=== PATIENT | male | born 1935 | race Caucasian/White ===

== ENCOUNTER 2019-12-22 12:15 | Outpatient (CLI) | payer MEDICARE, SELFPAY ==
--- NOTE | ~2019-12-22 | XR_ITS ---
XR lumbar spine 2-3V DATE: 12/22/2019 13:06 INDICATION: Fall one week ago. Low back pain, low posterior rib pain. TECHNIQUE: AP, lateral, coned lateral lumbosacral views COMPARISON: None FINDINGS: Minimal levoscoliosis of the lumbar spine. There is degenerative change at the apophyseal joints in the lower lumbar and lumbosacral area with a ssociated grade 1 anterolisthesis at L4-5. There is moderately severe degenerative disc disease at T12-L1. There is moderately prominent degener ative disc disease at L2-3 and L4-5 and mild degenerative disc disease at the remaining lumbar levels sacral interspaces. No lumbar spine fracture is evident. There is mild anterior wedging and loss of height at T10, which may indicate a compression fracture o f uncertain age. The included lower thoracic and lumbar pedicles are intact. The sacroiliac joints are intact. Bilateral pelvic surgical clips, likely due to prostatectomy. 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
--- NOTE | ~2019-12-22 | XR_ITS ---
XR ribs RT 2V DATE: 12/22/2019 13:06 INDICATION: Right chest contusion, pain TECHNIQUE: 3 views of the right ribs COMPARISON: 320/15/right RIBS FINDINGS: No displaced rib fractures are evident. No underlying pneumothorax or pleural effusion is evident. The right lung appears essentially clear. IMPRESSION: No recent right rib fracture is noted Reviewed, dictated and finalized at location A.
== END 2019-12-22 12:16 | disposition home or self-care (01) ==
PROVIDERS: PCP Internal Medicine; Visit Provider Internal Medicine
DX: S20.211A Contusion of right front wall of thorax, initial encounter (principal); S22.070A Wedge compression fracture of T9-T10 vertebra, initial encounter for closed fracture; M51.37 Other intervertebral disc degeneration, lumbosacral region; Z90.79 Acquired absence of other genital organ(s)
CPT/HCPCS: 71100; 72100

== ENCOUNTER 2020-05-05 12:06 | Inpatient (IN) | payer MEDICARE, SELFPAY ==
--- NOTE | ~2020-05-05 | XR_ITS ---
EXAMINATION: XR chest 2V DATE: 05/05/2020 13:39 INDICATION: Weakness. TECHNIQUE: Frontal and lateral views of the chest were obtained. COMPARISON: Right rib radiographs 12/22/2019, chest CT 12/25/2014 FINDINGS: A calcified left lung nodule and calcified left hilar lymph nodes are consistent with old g ranulomatous disease. There is no pneumonia, pleural effusion, or pneumothorax. Cardiomegaly is noted . IMPRESSION: 1. Cardiomegaly. Reviewed, dictated and finalized at location A. IMPRESSION: 1. Cardiomegaly.
--- NOTE | ~2020-05-05 | XR_ITS ---
EXAMINATION: XR barium swallow modified EXAM DATE: 05/07/2020 13:20 INDICATION: Dysphagia. TECHNIQUE: Modified barium esophagram was performed by myself to administered fluoroscopy, in conjun ction with speech pathologist who administered barium in varying consistencies as per speech patholog ist documentation. This was recorded on tape. The DAP for this procedure was 0.7 Gycm2. FINDINGS: Oral stage: Reduced lung collection, delayed swallow. Pharyngeal phase: Penetration and aspiration. Laryngeal penetration: Demonstrated. Aspiration: Demonstrated. IMPRESSION: Aspiration demonstrated; Please refer to speech pathologist findings and specific feedi ng recommendations. Reviewed, dictated and finalized at location A. IMPRESSION: Aspiration demonstrated; Please refer to speech pathologist findi ngs and specific feeding recommendations.
--- NOTE | ~2020-05-05 | MR_ITS ---
EXAMINATION: MR brain/brain stem wo con EXAM DATE: 05/09/2020 13:49 INDICATION: Encephalopathy. Found lying on stomach for 3 days. TECHNIQUE: Magnetic resonance imaging (MRI) of the brain/brain stem obtained without contrast. Sagitt al T1, axial diffusion, gradient echo (T2*), T1, T2, FLAIR sequences obtained. Correlation is made t o head CT 05/05/2020. 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 There is no acute hemorrhage seen on the T2*, a hemosiderin sensitive seq uence. No intraparenchymal brain mass lesion. There is moderate periventricular and subcortical T2/ FLAIR signal hyperintensity, nonspecific but probably related to small vessel ischemic disease (micro angiopathy). There is moderate prominence of the sulci and ventricles related to cerebral atrophy. There are no extra-axial collections. Flow voids are seen in the cerebral arteries on the T2-weigh steve sequences consistent with their expected patency. The orbits are unremarkable. Soft tissue is u nremarkable. IMPRESSION: 1. 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 2. Chronic age related findings. Reviewed, dictated and finalized at location A. IMPRESSION: 1. 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 2. Chronic age related findings.
--- NOTE | ~2020-05-05 | XR_ITS ---
EXAMINATION: XR barium swallow modified DATE: 05/10/2020 11:24 INDICATION: Dysphagia. TECHNIQUE: Modified barium esophagram was performed by myself to administered fluoroscopy, in conjun ction with speech pathologist who administered barium in varying consistencies as per speech patholog ist documentation. This was recorded on tape. A single fluoroscopic spot image was recorded. The DAP for this procedure was 1.875 Gycm2. Fluoroscopy exposure time was 1.7 minutes. FINDINGS: Oral stage: Inadequate function. Delayed swallow initiation. Pharyngeal phase: Adequate function. Laryngeal penetration: None. Aspiration: None. Laryngeal sensitivity: Present. IMPRESSION: Inadequate oral stage with delayed initiation of swallow. Please refer to speech patholo gist findings and specific feeding recommendations. Reviewed, dictated and finalized at location A. IMPRESSION: Inadequate oral stage with delayed initiation of swallow. Please r efer to speech pathologist findings and specific feeding recommendations.
--- NOTE | ~2020-05-05 | CT_ITS ---
EXAMINATION: CT cervical spine wo con DATE: 05/05/2020 14:49 INDICATION: Neck injury. TECHNIQUE: Computed tomography (CT) of the cervical spine was performed without intravenous contrast. Automated exposure control and iterative reconstruction technique were employed. The dose-length pro duct was 376.93 mGy-cm. COMPARISON: Cervical spine CT 01/10/2018 FINDINGS: There is mild scarring at the lung apices. The thyroid is enlarged and heterogeneous. There is 7 degrees levocurvature of cervical spine. There is severely decreased disc height at C3-C4, mode rately decreased disc height at C4-C5, severely decreased disc height at C5-C6 and C6-C7, and moderat kareem decreased disc height at C7-T1. The following disc levels are specifically discussed: C2-C3: There is mild bilateral uncovertebral joint osteoarthritis. There is severe bilateral facet lance int osteoarthritis. There is no neural foraminal stenosis. There is mild central canal stenosis. C3-C4: There is severe bilateral uncovertebral joint osteoarthritis. There is severe right and mild l eft facet joint osteoarthritis. There is mild bilateral neural foraminal stenosis. There is mild cent ral canal stenosis. C4-C5: There is severe right and mild left uncovertebral joint osteoarthritis. There is severe right and mild left facet joint osteoarthritis. There is moderate right and mild left neural foraminal sten osis. There is no central canal stenosis. C5-C6: There is severe bilateral uncovertebral joint osteoarthritis. There is moderate bilateral face t joint osteoarthritis. There is mild right and moderate left neural foraminal stenosis. There is mil d central canal stenosis. C6-C7: There is moderate right and severe left uncovertebral joint osteoarthritis. There is mild bila teral facet joint osteoarthritis. There is mild right and moderate left neural foraminal stenosis. Th ere is mild central canal stenosis. C7-T1: There is mild bilateral uncovertebral joint osteoarthritis. There is severe bilateral facet lance int osteoarthritis. There is mild bilateral neural foraminal stenosis. There is no central canal sten osis. IMPRESSION: 1. No fracture. 2. Severe cervical spondylosis. Reviewed, dictated and finalized at location A.
--- NOTE | ~2020-05-05 | CT_ITS ---
EXAMINATION: CT brain wo con EXAM DATE: 05/05/2020 13:29 INDICATION: Confusion. TECHNIQUE: Spiral CT of the head was performed without contrast. Axial, coronal and sagittal images were reviewed. The dose-length product (DLP) for this examination was 681.00 mGy-cm. The exposure w as tailored according to patient size, and iterative reconstruction (ASIR) was used as additional dos e reduction technique. Comparison is made to prior examination from 01/10/2018. FINDINGS: There is no acute intraparenchymal hemorrhage. No evidence of intraparenchymal brain mass lesion. No evidence of acute infarction. Please note that initial head CT has limited sensitivity f or small or acute infarctions. There is moderate periventricular and subcortical hypodensity, nonspec ific but probably related to small vessel ischemic disease. There is moderate prominence of the sul ci and ventricles related to cerebral atrophy. There is intracranial carotid arteriosclerosis. The re are no extra-axial collections. There is no mass effect or midline shift. The orbits are unremar kable. Soft tissue is unremarkable. The visualized sinuses and mastoid air cells are well aerated. IMPRESSION: 1. No acute intracranial findings. 2. Chronic age related findings. Reviewed, dictated and finalized at location A.
--- NOTE | ~2020-05-05 | US_ITS ---
EXAMINATION: US carotid duplex BI EXAM DATE: 05/10/2020 15:50 INDICATION: Stroke. TECHNIQUE: Grayscale, color and pulsed Doppler images of the cervical carotid arteries were obtained . The degree of vessel stenosis is placed in one of the following categories: normal, <50% stenosis, 50-69% stenosis, >=70% stenosis but less than near-occlusion, near-occlusion, or occlusion. Note that percent stenosis relative to normal distal artery lumen diameter is indirectly measured from velocit y measurements as described by Vaibhav, et al. Radiology 2003; 229:340-346. There is no prior study fo r comparison. FINDINGS: RIGHT SIDE: Right common carotid artery peak systolic velocity (PSV in cm/s): 60 Right bulb/internal carotid artery peak systolic velocity (PSV in cm/s): 67 Right internal carotid artery end diastolic velocity (EDV in cm/s): 25 Right ICA/CCA peak systolic ratio: 1 Right external carotid artery peak systolic velocity (PSV in cm/s): 30 Right vertebral artery antegrade flow: yes There is minimal carotid bulb plaque. Velocity and Doppler waveforms in the common and internal carotid arteries is normal. LEFT SIDE: Left common carotid artery peak systolic velocity (PSV in cm/s): 57 Left bulb/internal carotid artery peak systolic velocity (PSV in cm/s): 94 Left internal carotid artery end diastolic velocity (EDV in cm/s): 25 Left ICA/CCA peak systolic ratio: 1.3 Left external carotid artery peak systolic velocity (PSV in cm/s): 66 Left vertebral artery antegrade flow: yes There is minimal carotid bulb plaque. Velocity and Doppler waveforms in the common and internal carotid arteries is normal. IMPRESSION: 1. Less than 50 percent stenosis in the right internal carotid artery. 2. Less than 50 percent stenosis in the left internal carotid artery. > Reviewed, dictated and finalized at location A.
--- NOTE | ~2020-05-05 | CT_ITS ---
EXAMINATION: CT soft tissue neck wo con DATE: 05/13/2020 00:37 INDICATION: Torticollis TECHNIQUE: Computed tomography (CT) of the neck was performed without intravenous contrast. The dose- length product (DLP) was 561.64 mGy-cm. Automated exposure control and iterative reconstruction techn ique were employed. COMPARISON: 05/05/2020 FINDINGS: Leftward torticollis has developed since the comparison examination without identifiable et iology. Multinodular goiter is again noted. There are no pathologically enlarged lymph nodes. There i s a small left pleural effusion with associated atelectasis. There is severe cervical spondylosis. IMPRESSION: 1. Leftward torticollis of unclear etiology. 2. Multinodular goiter. Reviewed, dictated and finalized at location A.
--- NOTE | ~2020-05-05 | US_ITS ---
EXAMINATION: US renal BI EXAM DATE: 05/10/2020 15:50 INDICATION: Acute kidney insufficiency. TECHNIQUE: Multiple grayscale and Doppler images of the kidneys were obtained (by a technologist who performed the scan) and subsequently reviewed. There is no prior study for comparison. FINDINGS: Right kidney: There is normal contour and echogenicity. It measures 11.8 x 6.0 x 6.6 centimeters. Th ere is an anechoic structure consistent with cysts measuring up to 5.5 cm. There is moderate hydrone phrosis. Left kidney: Large echogenic fatty hilum, renal cortical thinning. There is normal contour and echoge nicity. It measures 11.3 x 6.8 x 6.0 centimeters. There are no focal renal lesions identified. Th ere is no hydronephrosis. Ruiz catheter within collapsed bladder. IMPRESSION: 1. Moderate right hydronephrosis, suspicious for acute or chronic obstructive nephropathy. 2. Renal cortical thinning, atrophy probably bilaterally but better visualized on left side without hydronephrosis. Reviewed, dictated and finalized at location A.
[2020-05-05 12:12] VITALS: BP 160/91; PULSE 108; RESP 18; TEMP 36.7; O2SAT 96
--- NOTE | 2020-05-05 12:24 | ECG_ITS ---
Measurements Intervals Dodge Rate: 119 P: 75 NC: 187 QRS: -24 QRSD: 92 T: 9 QT: 355 QTc: 501 Interpretive Statements MULTIFOCAL ATRIAL TACHYCARDIA ATRIAL TRIPLET AND ATRIAL PREMATURE COMPLEXES POOR R WAVE PROGRESSION, ANTERIOR LEADS BORDERLINE T WAVE ABNORMALITY- ANTEROLAT/INF LEADS ABNORMAL ECG Electronically Signed On 05-05-2020 12:39:55 CDT by Jose Guidry D.O.
[2020-05-05 12:50] LABS: Add Urine Microscopic? YES; Appearance Urine Clear (Clear); Bacteria Urine Trace /hpf; Bilirubin Urine Negative (Negative); Blood Urine 1+ (Negative); Color Urine Yellow (Yellow); Glucose Urine UA Negative (Negative); Ketones Urine Negative (Negative); Leukocyte Esterase Ur Negative LEU/UL (Negative); Mucus Urine Heavy /lpf; Nitrate Urine Negative (Negative); Protein Urine 2+ mg/dL (Negative); Specific Grav Ur 1.024 (1.001-1.035); Squamous Epithelial Cell Urine Rare /hpf (Few)
[2020-05-05 12:56] LABS: Basophils Percent Auto 0.1 % (0.2-1.2); Hematocrit 33.4 % (42.0-52.0); Hemoglobin 11.1 g/dL (14.0-18.0); Immature Granulocyte Absolute 0.09 K/mm3 (0.00-0.031); Immature Granulocyte Percent A 0.8 % (0-0.5); Lymphocytes Absolute Auto 0.18 K/mm3 (0.9-3.2); Lymphocytes Percent Auto 1.5 % (18.3-44.2); Mean Corpuscular HGB Conc 33.2 g/dl (32-36); Mean Corpuscular Hemoglobin 30.9 pg (26-34); Mean Platelet Volume 9.9 fl (7.4-10.4); Monocytes Absolute Auto 0.9 K/mm3 (0.1-0.6); Monocytes Percent Auto 7.7 % (2.6-8.5); Neutrophils Absolute Auto 10.7 K/mm3 (1.3-6.7); Neutrophils Percent Auto 89.9 % (45.5-73.1); Platelet Count Result 207 k/mm3 (150-375); Red Blood Count 3.59 M/mm3 (4.6-6.20); Red Cell Distribution Width 13.4 % (11.5-14.5); White Blood Count 11.9 K/mm3 (4.5-10.0)
[2020-05-05 13:08] LABS: Alanine Aminotransferase 17 U/L (4-50); Albumin Level 3.5 g/dL (3.5-5.1); Alkaline Phosphatase 73 U/L (38-126); Anion Gap 11.8 mmol/L (7-16); Aspartate Amino Transferase 21 U/L (17-59); Bilirubin,Total 0.8 mg/dL (0.2-1.3); Blood Urea Nitrogen 36 mg/dL (9-20); Calcium 9.3 mg/dL (8.4-10.2); Carbon Dioxide 30 mmol/L (22-30); Chloride 102 mmol/L (98-107); Estimated CRCL calculation 49 ml/min; Estimated Glomerular Filt Rate > 60; Glucose 153 mg/dL (75-110); Potassium 3.8 mmol/L (3.4-5.0); Sodium 140 mmol/L (137-145)
--- NOTE | 2020-05-05 13:10 | PC.NURSE ---
called adult protective services to file report. let message
[2020-05-05 13:27] LABS: INR 1.3; Prothrombin Time 15.7 Seconds (11.1-14.7)
[2020-05-05 13:28] LABS: Partial Thromboplastin Time 29.7 SECONDS (22.3-36.8)
--- NOTE | 2020-05-05 13:37 | PC.NURSE ---
report filed with adult protective services. spoke with delilah del rio at [phone]
--- NOTE | 2020-05-05 13:55 | ED.GENADULT ---
HPI - General Adult General Chief complaint: Altered Mental Status Stated complaint: AMS Time Seen by Provider: 05/05/20 12:30 Source: family and EMS History of Present Illness HPI narrative: Patient is 84 years old white male brought to the hospital by his who is telling me that patient been laying down flat facedown for the last 3 days in bed. Patient does not eat or drink for the last 3 days. Usually is awake, alert oriented x4 today is awake and oriented to his name only.. The nurse told me that patient had a fall 2 weeks ago and was laying down on the floor for 3 days before was able to get up later. Patient is DNR Related Data Home Medications Medication Instructions Recorded Confirmed Unable to Obtain Home Medications 05/05/20 05/05/20 Allergies Allergy/AdvReac Type Severity Reaction Status Date / Time No Known Allergies Allergy Unverified 06/15/19 10:25 Review of Systems Review of Systems: Narrative: Unable to obtain ROS unobtainable: Yes unobtainable due to mental status Exam Narrative: Exam Narrative: General appearance: Well-developed, well-nourished, follows commands sometime, able to say his name Skin: Dry skin across upper abdomen Head: Normocephalic, nontraumatic Eyes: Clear conjunctiva ENT: Oropharynx normal, ears normal, nose normal Neck: Supple, nontender Chest and respiratory: Airway patent, no respiratory distress, no accessory muscle use Heart: Regular rate/rhythm Abdomen: Soft, nontender, no organomegaly, quiet bowel sounds Vascular: Normal peripheral pulses, normal capillary refill. Musculoskeletal: Severe limited range of motion of neck Neurologic: Alert and oriented to his name only Course Course Emergency Course: Unchanged Vital Signs Vital signs: Vital Signs Temperature 36.7 C 05/05/20 12:12 Pulse Rate 108 H 05/05/20 12:12 Respiratory Rate 18 05/05/20 12:12 Blood Pressure 160/91 H 05/05/20 12:12 Pulse Oximetry 96 05/05/20 12:12 Temperature 36.7 C 05/05/20 12:12 Pulse Rate 108 H 05/05/20 12:12 Respiratory Rate 18 05/05/20 12:12 Blood Pressure 160/91 H 05/05/20 12:12 Pulse Oximetry 96 05/05/20 12:12 Medical Decision Making MDM Narrative Medical decision making narrative: Change of mental status. Labs, CT head, chest x-ray, UA ordered. Further plan to follow Differential Diagnosis Differential Diagnosis: Stroke, urinary tract infection, electrolyte imbalance, pneumonia, rhabdomyolysis, dehydration Vital Signs Vital Signs: Vital Signs Temperature 36.7 C 05/05/20 12:12 Pulse Rate 108 H 05/05/20 12:12 Respiratory Rate 18 05/05/20 12:12 Blood Pressure 160/91 H 05/05/20 12:12 Pulse Oximetry 96 05/05/20 12:12 Temperature 36.7 C 05/05/20 12:12 Pulse Rate 108 H 05/05/20 12:12 Respiratory Rate 18 05/05/20 12:12 Blood Pressure 160/91 H 05/05/20 12:12 Pulse Oximetry 96 05/05/20 12:12 Lab Data Result diagrams: 05/05/20 12:48 05/05/20 12:48 Labs: Lab Results 05/05/20 05/05/20 05/05/20 Range/Units 12:40 12:48 12:48 WBC 11.9 H (4.5-10.0) K/mm3 RBC 3.59 L (4.6-6.20) M/mm3 Hgb 11.1 L (14.0-18.0) g/dL Hct 33.4 L (42.0-52.0) % MCV 93.0 (80-100) fl MCH 30.9 (26-34) pg MCHC 33.2 (32-36) g/dl RDW 13.4 (11.5-14.5) % Plt Count 207 (150-375) k/mm3 MPV 9.9 (7.4-10.4) fl Immature Gran % (Auto) 0.8 H (0-0.5) % Neut % (Auto) 89.9 H (45.5-73.1) % Lymph % (Auto) 1.5 L (18.3-44.2) % Hyde % (Auto) 7.7 (2.6-8.5) % Eos % (Auto) 0.0 (0-4.4) % Baso % (Auto) 0.1 L (0.2-1.2) % Lymph # (Auto) 0.18 L (0.9-3.2) K/mm3 Hyde # (Auto)
[2020-05-05 14:05] LABS: Basophils Percent Auto 0.1 % (0.2-1.2); Hematocrit 33.2 % (42.0-52.0); Hemoglobin 10.8 g/dL (14.0-18.0); Immature Granulocyte Absolute 0.05 K/mm3 (0.00-0.031); Immature Granulocyte Percent A 0.4 % (0-0.5); Lymphocytes Absolute Auto 0.23 K/mm3 (0.9-3.2); Lymphocytes Percent Auto 1.8 % (18.3-44.2); Mean Corpuscular HGB Conc 32.5 g/dl (32-36); Mean Corpuscular Hemoglobin 30.3 pg (26-34); Monocytes Absolute Auto 0.8 K/mm3 (0.1-0.6); Monocytes Percent Auto 6.4 % (2.6-8.5); Neutrophils Absolute Auto 11.8 K/mm3 (1.3-6.7); Neutrophils Percent Auto 91.3 % (45.5-73.1); Platelet Count Result 235 k/mm3 (150-375); Red Blood Count 3.57 M/mm3 (4.6-6.20); Red Cell Distribution Width 13.2 % (11.5-14.5); White Blood Count 12.9 K/mm3 (4.5-10.0)
[2020-05-05 14:19] LABS: Creatine Kinase 55 U/L (55-170)
[2020-05-05 14:20] LABS: Lactic Acid Reflex 2.5 mmol/L (0.7-2.1)
[2020-05-05 14:24] LABS: Alanine Aminotransferase 21 U/L (4-50); Albumin Level 3.8 g/dL (3.5-5.1); Alkaline Phosphatase 80 U/L (38-126); Anion Gap 11.6 mmol/L (7-16); Aspartate Amino Transferase 23 U/L (17-59); Bilirubin,Total 0.9 mg/dL (0.2-1.3); Blood Urea Nitrogen 34 mg/dL (9-20); CRP > 9.0 mg/dL (<1.0); Calcium 9.5 mg/dL (8.4-10.2); Carbon Dioxide 30 mmol/L (22-30); Chloride 101 mmol/L (98-107); Estimated CRCL calculation 45 ml/min; Estimated Glomerular Filt Rate > 60; Glucose 153 mg/dL (75-110); Potassium 3.6 mmol/L (3.4-5.0); Sodium 139 mmol/L (137-145)
[2020-05-05 14:25] VITALS: BP 102/78; PULSE 128; RESP 20; O2SAT 99
[2020-05-05 15:35] VITALS: BP 156/95; PULSE 130; RESP 20; O2SAT 98
[2020-05-05] MEDS: LACTATED RINGERS 1,000 ML 125 ML IV CONT (16:11)
[2020-05-05 16:28] VITALS: BP 132/83; PULSE 106; RESP 20; TEMP 36.6; O2SAT 98
[2020-05-05 17:02] LABS: Reflex Lactic Acid Yes or No Add Lactic
--- NOTE | 2020-05-05 17:12 | PC.NURSE ---
Addendum entered by Magi Quiñones RN 05/05/20 17:20: Per patients spouse, preferred pharmacy is [facility] in [place]. RN called to obtain list of medications and per pharmacist this patient has not filled meds in quite a while . Spouse stated she was not familiar with medications. Status still unknown. Original Note: Patient medical history obtained via phone call to . Uncertain of accuracy of health history provided. Spouse states decreased appetite and difficulty swallowing. Also stated multiple falls and balance issues over the last several weeks .
[2020-05-05 17:40] LABS: Lactic Acid 2.8 mmol/L (0.7-2.1)
[2020-05-05 20:00] VITALS: PULSE 106; RESP 20; O2SAT 98
[2020-05-05 22:00] VITALS: BP 127/84; PULSE 79; RESP 18; TEMP 36.5; O2SAT 97
[2020-05-06] MEDS: LACTATED RINGERS 1,000 ML 125 ML IV CONT ×3 (01:29→19:21)
[2020-05-06 05:53] VITALS: BP 153/77; PULSE 102; RESP 18; TEMP 37.5; O2SAT 97
--- NOTE | 2020-05-06 09:42 | PM.IMHP ---
H&P: HPI History of Present Illness Chief complaint: Lying on his stomach for 3 days Narrative: Date and time of patient contact: 05/06/2020 at 5:50 a.m. source of information: Nursing report and ER report. The patient responds to his name but is minimally verbal and confused. of prostate cancer who presented to the ERPeter Aniceto Cervantes is a 84 year old male with a possible past medical history of prostate cancer who presented to the ER via EMSfrom home after he had been lying prone in bed for 3 days without oral intake. the patient will tracking movement around the room intermittently. When you say his name him will say okay. He will occasionally answer okay inappropriately to questions. The patient does not follow commands. The patient is reportedly usually alert oriented x4. The patient had a fall 2 weeks ago and was lying on the floor for 3 days before he could get up. His thought that he would be able to get up again. further information is unavailable. Review of Systems Review of Systems: ROS unobtainable: Yes unobtainable due to medical condition ( Patient is currently encephalopathic) [facility] Past Medical History Medical History (Updated 05/06/20 @ 10:14 by Milka Pina DO) Essential hypertension Irritable bowel syndrome Mild ascending aorta dilatation Normal cardiac stress test 2012 Normal colonoscopy 2007 Prostate cancer Thoracic compression fracture T8, T10, T11 noted on imaging from December 2014 Type 2 diabetes mellitus and ER note mentions the patient is on metformin back in 2014 Surgical History Surgical History (Updated 05/06/20 @ 10:02 by Milka Pina DO) History of prostatectomy History of sinus surgery 2000 Family History Family History (Updated 05/05/20 @ 17:05 by Magi Quiñones RN) Grandparent Acute myocardial infarction Sibling Hodgkin lymphoma Father Malignant neoplasm of prostate Father Lung cancer Mother ALS (amyotrophic lateral sclerosis) Social History Social History (Updated 05/06/20 @ 10:04 by Milka Pina DO) Social History: Primary care physician: Dr. Prince Clarke Code status: DNR /DNI Smoking status: Never smoker Alcohol intake: never Substance use: never Additional living arrangements comments: The patient lives at home with his . Spiritual care concerns: No Meds Home Medications and Allergies Home Medications Medication Instructions Recorded Confirmed Type Unable to Obtain Home Medications 05/05/20 05/05/20 History Allergies Allergy/AdvReac Type Severity Reaction Status Date / Time No Known Allergies Allergy Unverified 06/15/19 10:25 Vital Signs Vital Signs - 24 hr 05/05/20 12:12 05/05/20 14:25 05/05/20 15:35 Temperature 98.0 F Pulse Rate 108 H 128 H 130 H Respiratory Rate 18 20 20 Blood Pressure 160/91 H 102/78 156/95 H Pulse Oximetry 96 99 98 05/05/20 16:28 05/05/20 20:00 05/05/20 22:00 Temperature 97.9 F 97.7 F Pulse Rate 106 H 106 H 79 Respiratory Rate 20 20 18 Blood Pressure 132/83 127/84 Pulse Oximetry 98 98 97 05/06/20 05:53 Temperature 99.5 F Pulse Rate 102 H Respiratory Rate 18 Blood Pressure 153/77 H Pulse Oximetry 97 Exam Narrative: Exam Narrative: PHYSICAL EXAM: WEIGHT 68.2 kg BMI 21.6 General: frail, elderly, thin body habitus, patient smells strongly of urine HEENT: mucous membranes are dry, Respiratory: clear to auscultation bilaterally, no increased work of breathing Cardiovascular: slightly irregular, 2+ bilateral radial pedal pulses, normal S1-S2 Gastrointestinal: soft, nontender, nondistended, positive bowel sounds Skin: generalized pallor, non jaundice Musculoskeletal: age-related arthritic changes, no clubbing cyanosis or edema Neurological: alert oriented name only, patient will follow some simple commands such as sticking out his tongue, no obvious facial asymmetry, pupils are equal and sluggishly reactive P
[2020-05-06] MEDS: LACTATED RINGERS 1,000 ML 999 ML IV CONT (09:55)
[2020-05-06 10:36] LABS: Hematocrit 28.8 % (42.0-52.0); Hemoglobin 9.5 g/dL (14.0-18.0); Mean Corpuscular Hemoglobin 30.8 pg (26-34); Mean Corpuscular Volume 93.5 fl (80-100); Mean Platelet Volume 10.2 fl (7.4-10.4); Platelet Count Result 163 k/mm3 (150-375); Red Blood Count 3.08 M/mm3 (4.6-6.20); Red Cell Distribution Width 13.5 % (11.5-14.5); White Blood Count 10.3 K/mm3 (4.5-10.0)
[2020-05-06 10:40] LABS: Anion Gap 10.5 mmol/L (7-16); Blood Urea Nitrogen 34 mg/dL (9-20); Calcium 8.6 mg/dL (8.4-10.2); Carbon Dioxide 29 mmol/L (22-30); Chloride 106 mmol/L (98-107); Creatine Kinase 44 U/L (55-170); Estimated CRCL calculation 57 ml/min; Estimated Glomerular Filt Rate > 60; Glucose 126 mg/dL (75-110); Lactic Acid Reflex 1.5 mmol/L (0.7-2.1); Potassium 3.5 mmol/L (3.4-5.0); Sodium 142 mmol/L (137-145)
[2020-05-06 11:11] VITALS: BMI 21.5
--- NOTE | 2020-05-06 13:32 | PM.IMPN ---
Subjective Date/time seen: 05/06/20 13:32 Interval history: Pt seen by contact center associate this morning pt is altered chronically ill and frail. Arousable but very confused. Unable to do MRI as we are unsure about his medical history. I will try to get more history from / daughter. Neurology consulted. Patch of shingles on his abdomen i will treat with valtrex continue iv fluids for now. Prognosis is guarded poor history and condition of patient on arrival to ED. Objective Data Vital Signs Vital Signs: Vital Signs - 24 hr 05/05/20 14:25 05/05/20 15:35 05/05/20 16:28 Temperature 36.6 C Pulse Rate 128 H 130 H 106 H Respiratory Rate 20 20 20 Blood Pressure 102/78 156/95 H 132/83 Pulse Oximetry 99 98 98 05/05/20 20:00 05/05/20 22:00 05/06/20 05:53 Temperature 36.5 C 37.5 C Pulse Rate 106 H 79 102 H Respiratory Rate 20 18 18 Blood Pressure 127/84 153/77 H Pulse Oximetry 98 97 97 Intake/Output Intake/Output: Intake & Output 05/03/20 05/04/20 05/05/20 05/06/20 23:59 23:59 23:59 23:59 Intake Total 3000 Output Total 225 350 Balance -225 2650 Meds/Results Medications: Active Medications Generic Name Dose Route Start Last Admin Trade Name Freq PRN Reason Stop Dose Admin Lactated Ringer's 1,000 mls @ 125 mls/hr 05/05/20 14:25 05/06/20 11:18 Lr - Lactated Ringers Iv IV CONT 125 mls/hr .Q8H SAILAJA Administration Acetaminophen 1,000 mg in 100 mls @ 400 mls/hr 05/06/20 09:57 Ofirmev 1,000 Mg Ivpb IVPB 05/07/20 09:58 Q6H PRN Pain Rated 4-6 Radiology Results: ITS Impressions Head CT 05/05/20 13:30 IMPRESSION: 1. No acute intracranial findings. 2. Chronic age related findings. Chest X-Ray 05/05/20 13:39 IMPRESSION: 1. Cardiomegaly. Cervical Spine CT 05/05/20 14:56 IMPRESSION: 1. No fracture. 2. Severe cervical spondylosis. Labs Labs: Laboratory Results - last 24 hr 05/05/20 05/05/20 05/05/20 13:52 13:53 13:53 WBC 12.9 H RBC 3.57 L Hgb 10.8 L Hct 33.2 L MCV 93.0 MCH 30.3 MCHC 32.5 RDW 13.2 Plt Count 235 MPV 10.0 Immature Gran % (Auto) 0.4 Neut % (Auto) 91.3 H Lymph % (Auto) 1.8 L [place] % (Auto) 6.4 Eos % (Auto) 0.0 Baso % (Auto) 0.1 L Lymph # (Auto) 0.23 L [place] # (Auto) 0.8 H Eos # (Auto) 0.0 Baso # (Auto) 0.0 Abs Immat Gran (auto) 0.05 H Absolute Neuts (auto) 11.8 H Absolute Nucleated RBC 0.0 Nucleated RBC % 0.0 Sodium 139 Potassium 3.6 Chloride 101 Carbon Dioxide 30 Anion Gap 11.6 BUN 34 H Creatinine 1.10 Estim Creat Clear Calc 45 Estimated GFR > 60 Glucose 153 H Lactic Acid 2.5 H Calcium 9.5 Total Bilirubin 0.9 AST 23 ALT 21 Alkaline Phosphatase 80 Total Creatine Kinase C-Reactive Protein > 9.0 H Total Protein 8.0 Albumin 3.8 05/05/20 05/05/20 05/06/20 13:53 17:10 10:03 WBC 10.3 H RBC 3.08 L Hgb 9.5 L Hct 28.8 L MCV 93.5 MCH 30.8 MCHC 33.0 RDW 13.5 Plt Count 163 MPV 10.2 Immature Gran % (Auto) Neut % (Auto) Lymph % (Auto) [place] % (Auto) Eos % (Auto) Baso % (Auto) Lymph # (Auto) [place] # (Auto) Eos # (Auto) Baso # (Auto) Abs Immat Gran (auto) Absolute Neuts (auto) Absolute Nucleated RBC Nucleated RBC % Sodium Potassium Chloride Carbon Dioxide Anion Gap BUN Creatinine Estim Creat Clear Calc Estimated GFR Glucose Lactic Acid 2.8 H Calcium Total Bilirubin AST ALT Alkaline Phosphatase Total Creatine Kinase 55 C-Reactive Protein Total Protein Albumin 05/06/20 05/06/20 10:03 10:03 WBC RBC Hgb Hct MCV MCH MCHC RDW Plt Count MPV Immature Gran % (Auto) Neut % (Auto) Lymph % (Auto) [place] % (Auto) Eos % (Auto) Baso % (Auto) Lymph # (Auto) [place] # (Auto) Eos # (Auto) Baso # (A
[2020-05-06 14:25] VITALS: BP 152/80; PULSE 95; RESP 16; TEMP 36.5; O2SAT 96
--- NOTE | 2020-05-06 14:49 | PC.NURSE ---
Heidy Ward, APS Hand Packer, called in regards to the report that was received on the pt yesterday. Heidy was looking for more information in regards to the pt. She also wanted to speak with the pt but stated to her that the pt has not been able to follow many commands and is not very responsive to questions that she may not be able to get any information from him. Heidy stated to have a call placed to her when the pt becomes more alert. Her number that she provided to me, is [phone], ext [phone]
[2020-05-06 20:12] VITALS: BP 180/82; PULSE 74; RESP 18; TEMP 37.6; O2SAT 96
[2020-05-06] MEDS: hydrALAZINE HCL 20 MG/ML VIAL 10 MG IV PUSH (23:51)
[2020-05-07 04:59] VITALS: BP 180/92; PULSE 71; RESP 20; TEMP 37.9; O2SAT 95
[2020-05-07] MEDS: LACTATED RINGERS 1,000 ML 125 ML IV CONT (05:25)
[2020-05-07 05:54] VITALS: BP 180/92
[2020-05-07 06:08] VITALS: PULSE 71
[2020-05-07] MEDS: LABETALOL HCL INJ 100 MG/20 ML VIAL 10 MG IV PUSH (06:08)
--- NOTE | 2020-05-07 06:18 | CONS_ITS ---
DATE OF CONSULTATION: HISTORY OF PRESENT ILLNESS: 84 years old, has been admitted to [facility], through emergency room on transfer from [facility] with the information that he has been lying on his back for several days duration in addition to history of fall couple of weeks ago when he laid on the floor for several days again. In addition, he has ongoing history of 1. Hypertension. 2. Irritable bowel syndrome. 3. Carcinoma of the prostate. 4. Thoracic compression fractures T8, T10, T11. 5. Type 2 diabetes mellitus. The patient is a never smoker, never drinker. On initial evaluation, he was found to be afebrile with pulse 130, respirations 20, blood pressure of 156/95, pulse ox 98%. Further investigations revealed him to have CBC with mild leukocytosis, WBC 12.9, hemoglobin 10.8, platelet count of 235. ProTime 15.7, INR 1.3. Electrolytes normal, but BUN 34, creatinine 1.10, glucose 153. Lactic acid 2.5, repeat 2.8, repeat 1.5. CPK only 44 initially 55 and CRP more than 9. UA: 2+ protein and 1+ blood, 10-15 WBCs, 10-[address] scan of the head negative for the bleed, hydrocephalus, or any space-occupying lesion. Rib x-rays negative with no evidence of recent fracture. Lumbar spine x-rays with anterior wedge compression, deformity of T10 of undetermined age and anterolisthesis at L4-5 with degenerative changes. Cervical spine CT scan with significant cervical spondylosis, but again no mention about the cervical stenosis except the mild degree. PHYSICAL EXAMINATION: GENERAL: Today, he is awake, alert, not able to follow verbal commands, lying in the bed in the left lateral position with the eyes open and not following verbal commands appropriately. HEENT: Pupils round, regular. [place] of vision to threat stimuli full. Extraocular muscles spontaneously full in the horizontal gaze. No spontaneous nystagmus. Facial pain symmetrical. Tongue in the oral cavity. NEUROLOGIC: Motor examination revealed him to have generalized decrease in the strength with sluggish reflexes, downgoing plantar responses. No evidence of gross cerebellar abnormality. No resting tremor. No cogwheeling. IMPRESSION: Fairly nonfocal exam in a person who is not responding to the verbal command, though eyes are open regarding the visual stimuli very well and the evaluation up until now as such, it is very possible that he has a back pain and he was lying in prostrate position because of the old fractures, but again I will obtain the routine EEG and further recommendation accordingly. MICKEY SHELTON M.D. SOIL CONSERVATIONIST SOIL CONSERVATIONIST D I MT: [place]
[2020-05-07 08:00] VITALS: BP 127/57; PULSE 79; RESP 18; TEMP 36.3; O2SAT 94
[2020-05-07 13:57] VITALS: BP 161/85; PULSE 63; RESP 18; TEMP 36.3; O2SAT 98
--- NOTE | 2020-05-07 14:06 | PM.IMPN ---
Progress Note: A&P Assessment and Plan (1) Metabolic encephalopathy: Code(s): G93.41 - Metabolic encephalopathy Status: Acute Assessment and Plan: Encephalopathy ? cause- Pt had CT head, BC, swallow test, neurology consult. mRI was difficult to obtain Encephalopathy Most Likely secondary to advanced prostate cancer (2) Dehydration: Code(s): E86.0 - Dehydration Status: Acute Assessment and Plan: IV fluids, dietican evaluation as pt looks malnourished (3) Altered mental status: Qualifiers: Altered mental status type: unspecified Qualified Code(s): R41.82 - Altered mental status, unspecified Code(s): R41.82 - Altered mental status, unspecified Status: Acute Assessment and Plan: Swallow test MRI unable to obtain due to lack of knowleged about metal. Pt had ct head (4) Shingles: Code(s): B02.9 - Zoster without complications Status: Acute Assessment and Plan: Continue iv acyclovir Subjective Date/time seen: 05/07/20 14:06 Interval history: Pt is altered chronically ill and frail. Arousable but very confused. Unable to do MRI as we are unsure about his medical history. I will try to get more history from / daughter. Neurology consulted. Patch of shingles on his abdomen i will treat with valtrex continue iv fluids for now. Prognosis is guarded poor history and condition of patient on arrival to ED. Pt is much the same as yesterday, poor cognition and overall health, I recived noted from [facility] to get more medical information, I see pt has history of prostate cancer, with [facility] pt had radical prostectomy and radiation and lupron injections very advanced prostate cancer also has history of htn. Review of Systems Review of Systems: ROS unobtainable: Yes unobtainable due to medical condition Exam Narrative: Exam Narrative: General: frail, elderly, unkempt dry, ? malnournished, turn held to one side bad oral hygiene HEENT: mucous membranes are dry, Respiratory: clear to auscultation bilaterally Cardiovascular: slightly irregular, 2+ bilateral radial pedal pulses, normal S1-S2 Gastrointestinal: soft, nontender, nondistended, positive bowel sounds Skin: generalized pallor, non jaundice Musculoskeletal: age-related arthritic changes, no clubbing cyanosis or edema Neurological: arousable to verbal commands and pain but very solmenent and poor cognition Objective Data Vital Signs Vital Signs: Vital Signs - 24 hr 05/06/20 14:25 05/06/20 20:12 05/07/20 04:59 Temperature 36.5 C 37.6 C H 37.9 C H Pulse Rate 95 74 71 Respiratory Rate 16 18 20 Blood Pressure 152/80 H 180/82 H 180/92 H Pulse Oximetry 96 96 95 05/07/20 05:54 05/07/20 06:08 05/07/20 08:00 Temperature 36.3 C L Pulse Rate 71 79 Respiratory Rate 18 Blood Pressure 180/92 H 127/57 L Pulse Oximetry 94 05/07/20 13:57 Temperature 36.3 C L Pulse Rate 63 Respiratory Rate 18 Blood Pressure 161/85 H Pulse Oximetry 98 Intake/Output Intake/Output: Intake & Output 05/04/20 05/05/20 05/06/20 05/07/20 23:59 23:59 23:59 23:59 Intake Total 4000 1200 Output Total 225 700 725 Balance -225 3300 475 Meds/Results Medications: Active Medications Generic Name Dose Route Start Last Admin Trade Name Freq PRN Reason Stop Dose Admin Lactated Ringer's 1,000 mls @ 125 mls/hr 05/05/20 14:25 05/07/20 05:25 Lr - Lactated Ringers Iv IV CONT 125 mls/hr .Q8H SAILAJA Administration Acyclovir Sodium 500 mg/ 110 mls @ 110 mls/hr 05/07/20 06:00 05/07/20 13:32 Dextrose IVPB 110 mls/hr Q8HR SAILAJA Administration Radiology Results: ITS Impressions Head CT 05/05/20 13:30 IMPRESSION: 1. No acute intracranial findings. 2. Chronic age related findings. Chest X-Ray 05/05/20 13:39 IMPRESSION: 1. Cardiomegaly. Cervical Spine CT 05/05/20 14:56 IMPRESSION: 1. No fracture. 2. Severe cervical spondylosis. Mo
--- NOTE | 2020-05-07 15:12 | PCDIET ---
Nutrition Follow-Up Complete: Inadequate Oral Intake as related to change of mental status as evidenced by NPO Meet estimated nutritional needs. Goal: Goal not met. Continue Goal. Pt current nutrition is npo. Nutrition recommendation: Agree: Rec EN if pt/family desired Last recorded weight is 68.2 kg (recommend daily weight) Bowel Motility: Labs Reviewed:No new labs Meds Noted:Dextrose Additional Notes: Pt with physical symptoms of malnutrition including temporal wasting. 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 RN states potential hospice. If family requests EN, recommend Jevity 1.2 starting at 10ml/hr and advancing to 40ml/hr day one. If pt tolerates and electrolytes remain stable, recommend advancing to goal of 80ml/hr day to provide 2112kcals, 97g protein, 1420ml of free water. We will continue to follow ever 3 days.
[2020-05-07] MEDS: DEXTROSE 5%/0.45% SOD CHL 1,000 ML 70 ML IV CONT (15:28)
--- NOTE | 2020-05-07 16:20 | WPDNEUROPN ---
Progress Note: A&P Assessment and Plan (1) Safety impairment: Status: Acute (2) Metabolic encephalopathy: Code(s): G93.41 - Metabolic encephalopathy Status: Acute (3) Lactic acidosis: Code(s): E87.2 - Acidosis Status: Acute (4) Dehydration: Code(s): E86.0 - Dehydration Status: Acute (5) Altered mental status: Qualifiers: Altered mental status type: unspecified Qualified Code(s): R41.82 - Altered mental status, unspecified Code(s): R41.82 - Altered mental status, unspecified Status: Acute Additional Plan I agree with the plan of management by the primary care physician Review of Systems Review of Systems: All systems reviewed & are unremarkable except as noted in HPI and below Exam Const: General: comfortable and no acute distress HENMT: General nose exam: Normal nares present Mouth: Yes moist mucous membranes Eyes: General: appearance normal, both eyes and all related structures Neck: Neck: supple and no JVD Resp: Effort & Inspection: normal respiratory effort Auscultation: clear to auscultation bilaterally Cardio: Rate: regular rate Rhythm: regular rhythm GI: Auscultation: normal bowel sounds Neuro: Other: patient is awake alert oriented x3 however short-term memory is clearly defective he does not have any lateralizing focal motor deficit and the depressed reflexes negative Babinski sign but difficult to do any activity of daily living with generalized weakness Extrem: General: normal to inspection Left upper extremity: normal to inspection Psych: Other: encephalopathic Objective Data Vital Signs Vital Signs: Vital Signs - 24 hr 05/06/20 20:12 05/07/20 04:59 05/07/20 05:54 Temperature 37.6 C H 37.9 C H Pulse Rate 74 71 Respiratory Rate 18 20 Blood Pressure 180/82 H 180/92 H 180/92 H Pulse Oximetry 96 95 05/07/20 06:08 05/07/20 08:00 05/07/20 13:57 Temperature 36.3 C L 36.3 C L Pulse Rate 71 79 63 Respiratory Rate 18 18 Blood Pressure 127/57 L 161/85 H Pulse Oximetry 94 98 Intake/Output Intake/Output: Intake & Output 05/04/20 05/05/20 05/06/20 05/07/20 23:59 23:59 23:59 23:59 Intake Total 4000 2200 Output Total 225 700 725 Balance -225 3300 1475 Meds/Results Medications: Active Medications Generic Name Dose Route Start Last Admin Trade Name Reggieq PRN Reason Stop Dose Admin Acyclovir Sodium 500 mg/ 110 mls @ 110 mls/hr 05/07/20 06:00 05/07/20 14:34 Dextrose IVPB Infused Q8HR SAILAJA Infusion Dextrose/Sodium Chloride 1,000 mls @ 70 mls/hr 05/07/20 15:10 05/07/20 15:28 Dextrose 5% Sodium Chloride 0.45% IV CONT 70 mls/hr .[id number] SAILAJA Administration Radiology Results: ITS Impressions Head CT 05/05/20 13:30 IMPRESSION: 1. No acute intracranial findings. 2. Chronic age related findings. Chest X-Ray 05/05/20 13:39 IMPRESSION: 1. Cardiomegaly. Cervical Spine CT 05/05/20 14:56 IMPRESSION: 1. No fracture. 2. Severe cervical spondylosis. Modified Barium Swallow 05/07/20 13:25 IMPRESSION: Aspiration demonstrated; Please refer to speech pathologist findings and specific feeding recommendations. Quality VTE Prophylaxis VTE prophylaxis: mechanical ordered ( SCDs)
[2020-05-07 21:11] VITALS: BP 161/80; PULSE 79; RESP 20; TEMP 36.3; O2SAT 98
[2020-05-08 05:34] VITALS: BP 180/102; PULSE 66; RESP 18; TEMP 36.7; O2SAT 97
[2020-05-08] MEDS: DEXTROSE 5%/0.45% SOD CHL 1,000 ML 70 ML IV CONT ×2 (06:04→23:10)
[2020-05-08] MEDS: hydrALAZINE HCL 20 MG/ML VIAL 10 MG IV PUSH (06:12)
[2020-05-08 06:58] VITALS: BP 180/102
[2020-05-08 08:00] VITALS: PULSE 66; RESP 18; O2SAT 97
[2020-05-08 12:04] VITALS: BP 138/90; PULSE 63
--- NOTE | 2020-05-08 12:04 | PM.IMPN ---
Progress Note: A&P Assessment and Plan (1) Metabolic encephalopathy: Code(s): G93.41 - Metabolic encephalopathy Status: Acute Assessment and Plan: Encephalopathy ? cause- Pt had CT head, BC, swallow test, neurology consult. MRI was difficult to obtain Encephalopathy Most Likely secondary to advanced prostate cancer Pt is NPO. With IV fluids. (2) Dehydration: Code(s): E86.0 - Dehydration Status: Acute Assessment and Plan: IV fluids, dietican evaluation as pt looks malnourished (3) Altered mental status: Qualifiers: Altered mental status type: unspecified Qualified Code(s): R41.82 - Altered mental status, unspecified Code(s): R41.82 - Altered mental status, unspecified Status: Acute Assessment and Plan: Swallow test MRI unable to obtain due to lack of knowleged about metal. Pt had ct head (4) Shingles: Code(s): B02.9 - Zoster without complications Status: Acute Assessment and Plan: Continue iv acyclovir Subjective Date/time seen: 05/08/20 12:04 Interval history: Pt is altered chronically ill and frail. Arousable but very confused. Unable to do MRI as we are unsure about his medical history. I will try to get more history from / daughter. Neurology consulted. Patch of shingles on his abdomen i will treat with valtrex continue iv fluids for now. Prognosis is guarded poor history and condition of patient on arrival to ED. Pt is much the same as yesterday, poor cognition and overall health, I recived noted from [facility] to get more medical information, I see pt has history of prostate cancer, with [facility] pt had radical prostectomy and radiation and lupron injections very advanced prostate cancer also has history of htn. Family will be meeting with hospice today Pt is much the same. ? pain in the neck keeps his head to one side Review of Systems Review of Systems: ROS unobtainable: Yes unobtainable due to medical condition Exam Narrative: Exam Narrative: General: frail, elderly, unkempt dry, ? malnournished, turn held to one side bad oral hygiene HEENT: mucous membranes are dry, Respiratory: clear to auscultation bilaterally Cardiovascular: slightly irregular, 2+ bilateral radial pedal pulses, normal S1-S2 Gastrointestinal: soft, nontender, nondistended, positive bowel sounds Skin: generalized pallor, non jaundice Musculoskeletal: age-related arthritic changes, no clubbing cyanosis or edema Neurological: arousable to verbal commands and pain but very solmenent and poor cognition Objective Data Vital Signs Vital Signs: Vital Signs - 24 hr 05/07/20 13:57 05/07/20 21:11 05/08/20 05:34 Temperature 36.3 C L 36.3 C L 36.7 C Pulse Rate 63 79 66 Respiratory Rate 18 20 18 Blood Pressure 161/85 H 161/80 H 180/102 H Pulse Oximetry 98 98 97 05/08/20 06:58 05/08/20 08:00 Temperature Pulse Rate 66 Respiratory Rate 18 Blood Pressure 180/102 H Pulse Oximetry 97 Intake/Output Intake/Output: Intake & Output 05/05/20 05/06/20 05/07/20 05/08/20 23:59 23:59 23:59 23:59 Intake Total 4000 2413 987 Output Total 225 700 975 600 Balance -225 3300 1438 387 Meds/Results Medications: Active Medications Generic Name Dose Route Start Last Admin Trade Name Freq PRN Reason Stop Dose Admin Hydralazine HCl 10 mg 05/08/20 05:58 05/08/20 06:12 Apresoline Hcl Inj IV PUSH 05/10/20 07:00 10 mg Q8H PRN Administration see comment Acyclovir Sodium 500 mg/ 110 mls @ 110 mls/hr 05/07/20 06:00 05/08/20 07:04 Dextrose IVPB Infused Q8HR SAILAJA Infusion Dextrose/Sodium Chloride 1,000 mls @ 70 mls/hr 05/07/20 15:10 05/08/20 06:04 Dextrose 5% Sodium Chloride 0.45% IV CONT 70 mls/hr .[id number] SAILAJA Administration Radiology Results: ITS Impressions Head CT 05/05/20 13:30 IMPRESSION: 1. No acute intracranial findings. 2. Chronic age related findings. Chest X-Ray 05/05
[2020-05-08 14:00] VITALS: BP 135/75; PULSE 66; RESP 18; TEMP 36.6; O2SAT 98
[2020-05-08 18:31] LABS: SARS-CoV-2 RNA PCR Negative
[2020-05-08 20:43] VITALS: BP 127/66; PULSE 112; RESP 18; TEMP 36.7; O2SAT 96
[2020-05-09 06:00] VITALS: BP 154/76; PULSE 63; RESP 18; TEMP 37.2; O2SAT 95
[2020-05-09 08:00] VITALS: PULSE 63; RESP 18; O2SAT 95
--- NOTE | 2020-05-09 08:31 | PM.IMPN ---
Progress Note: A&P Assessment and Plan (1) Metabolic encephalopathy: Code(s): G93.41 - Metabolic encephalopathy Status: Acute Assessment and Plan: Encephalopathy ? cause Pt had CT head, CXR, UC. BC, swallow test, neurology consult. MRI of brain and PSA ordered. BC and UC negative to date, CXR cardiomegaly, CT head chronic changes Encephalopathy Most Likely secondary to advanced prostate cancer Pt is NPO. With IV fluids.I will start procalamine today. Family yet to decide on PEG tube placement. PSA is 9 Awaiting MRI brain and rpt MBS on sunday (2) Dehydration: Code(s): E86.0 - Dehydration Status: Acute Assessment and Plan: Resolving on IV fluids, dietican evaluation as pt looks malnourished (3) Altered mental status: Qualifiers: Altered mental status type: unspecified Qualified Code(s): R41.82 - Altered mental status, unspecified Code(s): R41.82 - Altered mental status, unspecified Status: Acute Assessment and Plan: Pt failed swallow test. Pt had ct head awaiting MRI brain and EEG under neurology (4) Shingles: Code(s): B02.9 - Zoster without complications Status: Acute Assessment and Plan: Continue iv acyclovir (5) Neck pain: Code(s): M54.2 - Cervicalgia Status: Acute Assessment and Plan: CT cspine severe cervical spondylosis.continue tylenol#3 prn pain Subjective Date/time seen: 05/09/20 08:31 Interval history: Pt is altered chronically ill and frail. Arousable but very confused. Neurology consulted. Patch of shingles on his abdomen i will treat with acyclovir continue iv fluids for now. Prognosis is guarded poor history and condition of patient on arrival to ED. Pt is much the same as yesterday, poor cognition and overall health, I see pt has history of prostate cancer, with [facility] pt had radical prostectomy and radiation and lupron injections very advanced prostate cancer also has history of htn. From [facility] notes. Long discussion with family they want NH placement not hospice. They agreed pt has no metal in the body so MRI brain was ordered. Long discussion with Merna, Son about fathers condition etc. Pt is much the same. ? pain in the neck keeps his head to one side. Still on Iv fluids family yet to decide on PEG tube placement. Review of Systems Review of Systems: ROS unobtainable: Yes unobtainable due to medical condition Exam Narrative: Exam Narrative: General: frail, elderly, chronically ill appearing, weak and withered, malnourished, turn held to one side bad oral hygiene HEENT: mucous membranes are less dry Respiratory: clear to auscultation bilaterally Cardiovascular: slightly irregular, 2+ bilateral radial pedal pulses, normal S1-S2 Gastrointestinal: soft, nontender, nondistended, positive bowel sounds Skin: generalized pallor, Musculoskeletal: age-related arthritic changes, no clubbing cyanosis or edema Neurological: Pt is more alert today and holding some conversation but still appears tired and weak. Weakness in both legs 2/5. Objective Data Vital Signs Vital Signs: Vital Signs - 24 hr 05/08/20 12:04 05/08/20 14:00 05/08/20 20:43 Temperature 36.6 C 36.7 C Pulse Rate 63 66 112 H Respiratory Rate 18 18 Blood Pressure 138/90 135/75 127/66 Pulse Oximetry 98 96 05/09/20 06:00 Temperature 37.2 C Pulse Rate 63 Respiratory Rate 18 Blood Pressure 154/76 H Pulse Oximetry 95 Intake/Output Intake/Output: Intake & Output 05/06/20 05/07/20 05/08/20 05/09/20 23:59 23:59 23:59 23:59 Intake Total 4000 2413 2207 110 Output Total 700 975 750 250 Balance 3300 1438 1457 -140 Meds/Results Medications: Active Medications Generic Name Dose Route Start Last Admin Trade Name Freq PRN Reason Stop Dose Admin Acetaminophen/Codeine Phosphate 1 tab 05/08/20 15:58 Tylenol #3 PO Q4H PRN Pain Rated 4-6 Hydralazine HCl 10 mg 05/08/20 0
[2020-05-09 10:13] LABS: Basophils Percent Auto 0.2 % (0.2-1.2); Eosinophils Percent Auto 0.5 % (0-4.4); Hematocrit 26.6 % (42.0-52.0); Hemoglobin 8.8 g/dL (14.0-18.0); Immature Granulocyte Absolute 0.04 K/mm3 (0.00-0.031); Immature Granulocyte Percent A 0.6 % (0-0.5); Immature Platelet Fraction Pct 3.6 % (0.9-11.2); Lymphocytes Absolute Auto 0.23 K/mm3 (0.9-3.2); Lymphocytes Percent Auto 3.5 % (18.3-44.2); Mean Corpuscular HGB Conc 33.1 g/dl (32-36); Mean Corpuscular Hemoglobin 30.2 pg (26-34); Mean Corpuscular Volume 91.4 fl (80-100); Mean Platelet Volume 10.2 fl (7.4-10.4); Monocytes Absolute Auto 0.5 K/mm3 (0.1-0.6); Monocytes Percent Auto 7.2 % (2.6-8.5); Neutrophils Absolute Auto 5.9 K/mm3 (1.3-6.7); Platelet Count Result 137 k/mm3 (150-375); Red Blood Count 2.91 M/mm3 (4.6-6.20); Red Cell Distribution Width 13.3 % (11.5-14.5); White Blood Count 6.7 K/mm3 (4.5-10.0)
[2020-05-09 10:23] LABS: Partial Thromboplastin Time 29.7 SECONDS (22.3-36.8)
[2020-05-09 10:33] LABS: Alanine Aminotransferase 20 U/L (4-50); Albumin Level 2.4 g/dL (3.5-5.1); Alkaline Phosphatase 69 U/L (38-126); Aspartate Amino Transferase 37 U/L (17-59); Bilirubin,Total 0.7 mg/dL (0.2-1.3); Blood Urea Nitrogen 36 mg/dL (9-20); Carbon Dioxide 27 mmol/L (22-30); Chloride 106 mmol/L (98-107); Estimated CRCL calculation 24 ml/min; Estimated Glomerular Filt Rate 32; Glucose 131 mg/dL (75-110); Magnesium 1.9 mg/dL (1.6-2.3); Sodium 139 mmol/L (137-145)
[2020-05-09 10:40] LABS: Transferrin 88 mg/dL (206-381)
[2020-05-09] MEDS: AMINO ACIDS 4.25%/D5W/LYTES/CA 2,000 ML 80 ML IV CONT (10:51)
[2020-05-09] MEDS: FAT EMULSIONS IV 20% 250 ML 20.8 ML IVPB (11:12)
[2020-05-09 13:43] LABS: Glucose Point of Care 134 (65-105)
[2020-05-09 14:00] VITALS: BP 135/77; PULSE 84; RESP 18; TEMP 36.1; O2SAT 96
[2020-05-09 18:12] LABS: Glucose Point of Care 161 (65-105)
[2020-05-09 21:40] VITALS: BP 173/76; PULSE 71; RESP 16; TEMP 36.1; O2SAT 97
[2020-05-09] MEDS: hydrALAZINE HCL 20 MG/ML VIAL 10 MG IV PUSH (21:42)
[2020-05-09 23:17] LABS: Glucose Point of Care 136 (65-105)
[2020-05-10] VITALS (10 sets, daily range): BP systolic 124–156; BP diastolic 64–92; PULSE 77–142; RESP 14–19; TEMP 36.3–37.1; O2SAT 93–99; BMI 10.0
--- NOTE | 2020-05-10 | ECHO_ITS ---
Patient Info Name: Lucas Cervantes Age: 84 years : 1935 Gender: Male Ht: 70 in Wt: 150 lbs BSA: 1.83 m2 HR: 113 bpm BP: 145 / 85 mmHg Technical Quality: Fair Exam Date: 05/10/2020 4:14 PM Exam Location: [facility] Pulmonary Exam Room: 345 Patient Status: Inpatient Admit Date: 05/06/2020 Staff Ordering Physician: William Yang MD [employer] Machine Tender: Ekta Carmen RCS Attending Provider: William Yang MD Exam Type: CA echo doppler color flow Study Info Indications - cva Complete two-dimensional, color flow and Doppler transthoracic echocardiogram is performed. Summary 1. Severe LVH, reduced LV cavity size; hyperdynamic LV systolic function, ejection fraction more than 70%. Indeterminate diastolic function. Mild left atrial enlargement. Right atrium not well visualized. Normal mitral valve structure, no significant MR. No significant aortic valve stenosis. Trivial TR. Mild pulmonary hypertension, RVSP 39 mmHg. Left Ventricle Left ventricular chamber dimension is decreased. Left ventricular systolic function is normal, estimated at >70%. There is severe concentric increased left ventricular wall thickness. Left ventricular septal wall motion is normal. The left ventricular diastolic function is normal. Right Ventricle Right ventricular chamber dimension is normal. Right ventricular systolic function is normal. Left Atria Left atrial chamber dimension is mildly enlarged. Right Atria Right atrial chamber dimension is not well visualized. Aortic Valve There is no aortic valve sclerosis. There is no aortic valve stenosis. There is no aortic valve regurgitation. Pulmonic Valve The pulmonic valve is not well visualized. There is trace pulmonic regurgitation. Mitral Valve The mitral valve has normal leaflets. There is no mitral valve regurgitation. Tricuspid Valve The tricuspid valve leaflets are normal. There is trace tricuspid valve regurgitation. Mild pulmonary hypertension, estimated pulmonary arterial systolic pressure is 39 mmHg. Pericardium/Pleural The pericardium appears epicardial fat pad. There is no pericardial effusion. Aorta The aortic root size at the sinus of Valsalva is normal. The prox ascending aorta size is normal. Left Ventricular Outflow Tract Name Value Normal LVOT 2D LVOT Diameter 2.1 cm LVOT Doppler LVOT Peak Gradient 4 mmHg LVOT Mean Gradient 3 mmHg LVOT VTI 18 cm LVOT VTI/AV VTI Ratio 1.0 LVOT Stroke Volume 62 ml LVOT CO 17.6 l/min LVOT CI 9.6 l/min/m2 Pulmonic Valve Name Value Normal PV Doppler PV Peak Gradient 3 mmHg Mitral Valve
[2020-05-10 06:03] LABS: Alanine Aminotransferase 21 U/L (4-50); Albumin Level 2.7 g/dL (3.5-5.1); Alkaline Phosphatase 68 U/L (38-126); Anion Gap 11.2 mmol/L (7-16); Aspartate Amino Transferase 29 U/L (17-59); Bilirubin,Total 0.6 mg/dL (0.2-1.3); Blood Urea Nitrogen 46 mg/dL (9-20); Calcium 8.3 mg/dL (8.4-10.2); Carbon Dioxide 25 mmol/L (22-30); Chloride 104 mmol/L (98-107); Estimated CRCL calculation 24 ml/min; Estimated Glomerular Filt Rate 32; Glucose 118 mg/dL (75-110); Phosphorus 4.7 mg/dL (2.5-4.5); Potassium 3.2 mmol/L (3.4-5.0); Sodium 137 mmol/L (137-145)
[2020-05-10 06:06] LABS: Basophils Percent Auto 0.3 % (0.2-1.2); Eosinophils Percent Auto 0.5 % (0-4.4); Hematocrit 29.9 % (42.0-52.0); Immature Granulocyte Absolute 0.06 K/mm3 (0.00-0.031); Immature Granulocyte Percent A 0.8 % (0-0.5); Immature Platelet Fraction Pct 4.9 % (0.9-11.2); Lymphocytes Percent Auto 2.7 % (18.3-44.2); Mean Corpuscular HGB Conc 33.4 g/dl (32-36); Mean Corpuscular Hemoglobin 30.5 pg (26-34); Mean Corpuscular Volume 91.2 fl (80-100); Mean Platelet Volume 10.1 fl (7.4-10.4); Monocytes Absolute Auto 0.5 K/mm3 (0.1-0.6); Monocytes Percent Auto 6.2 % (2.6-8.5); Neutrophils Absolute Auto 6.7 K/mm3 (1.3-6.7); Neutrophils Percent Auto 89.5 % (45.5-73.1); Platelet Count Result 145 k/mm3 (150-375); Red Blood Count 3.28 M/mm3 (4.6-6.20); Red Cell Distribution Width 13.2 % (11.5-14.5); White Blood Count 7.4 K/mm3 (4.5-10.0)
[2020-05-10 06:10] LABS: Transferrin 108 mg/dL (206-381)
[2020-05-10 06:29] LABS: Glucose Point of Care 127 (65-105)
[2020-05-10 07:25] LABS: Triglycerides 120 mg/dL (<150)
--- NOTE | 2020-05-10 08:05 | PC.NURSE ---
Pt reported to me that he had used [facility] pharmacy in [place]. Called this pharmacy and the last time anything was filled was in june of 2019, The most reent list of medication that we had that was received from [facility] is from September of 2019.
[2020-05-10 08:32] LABS: INR 1.2; Prothrombin Time 15.3 Seconds (11.1-14.7)
[2020-05-10 08:33] LABS: Partial Thromboplastin Time 22.3 SECONDS (22.3-36.8)
--- NOTE | 2020-05-10 09:08 | ECG_ITS ---
Measurements Intervals [place] Rate: 131 P: MO: 0 QRS: -12 QRSD: 106 T: -8 QT: 333 QTc: 493 Interpretive Statements ATRIAL FIBRILLATION WITH RAPID VENTRICULAR RESPONSE BORDERLINE R WAVE PROGRESSION, ANTERIOR LEADS BORDERLINE ST-T WAVE ABNORMALITY- INF/LAT LEADS BASELINE ARTIFACT- I, II, III, AVR, AVL,A VF ABNORMAL ECG Electronically Signed On 05-10-2020 13:32:04 CDT by Jose Guidry D.O.
[2020-05-10] MEDS: FAT EMULSIONS IV 20% 250 ML 20.8 ML IVPB (11:31)
[2020-05-10] MEDS: AMINO ACIDS 4.25%/D5W/LYTES/CA 2,000 ML 80 ML IV CONT (11:31)
[2020-05-10 11:32] LABS: Glucose Point of Care 171 (65-105)
[2020-05-10] MEDS: ASPIRIN 300 MG SUPPOSITORY RECTAL (11:32)
--- NOTE | 2020-05-10 12:16 | PM.IMPN ---
Progress Note: A&P Assessment and Plan (1) Altered mental status: Qualifiers: Altered mental status type: unspecified Qualified Code(s): R41.82 - Altered mental status, unspecified Code(s): R41.82 - Altered mental status, unspecified Status: Acute Assessment and Plan: Patient brought to ER via EMS from home after he had been lying prone in bed for 3 days without oral intake. He was alert but confused. His confusion appears to be improving but persistent. CT brain 05/05/20 showing no acute findings. Cervical spine CT showing severe cervical spondylosis. Elevated WBC without clear source. He did have low grade fever on 05/07 wihtout clear etiology. PSA 9 which is higher than his baseline. DANISH has developed. Brain MRI showing punctate acute cortical infarction in the left occipital lobe and another in the right-sided parietal lobe. Will add ASA. Neurology consulted and appreciate their input. Awaiting repeat swallow study evaluation. (2) Acute CVA (cerebrovascular accident): Code(s): I63.9 - Cerebral infarction, unspecified Status: Acute Assessment and Plan: MRI showing punctate acute cortical infarction in the left occipital lobe and another in the right-sided parietal lobe. EKG repeated and probably AFib now. Add ASA. Cheeck lipid panel. Check carotid US and Echo. No CTA due to DANISH. PT/OT. TRC evaluation (3) Atrial fibrillation with rapid ventricular response: Code(s): I48.91 - Unspecified atrial fibrillation Status: Acute Assessment and Plan: HR as high as 140's now. EKG reviewed and P waves not as readily seen as prior EKG to suggest AFib. Will add Lopressor IV since swallow study is pending. Lovenox for DVT prophylaxis but hold on full anticoagulation. (4) DANISH (acute kidney injury): Code(s): N17.9 - Acute kidney failure, unspecified Status: Acute Assessment and Plan: Cr 2.0 today. Cr normal on admission. Possibly related to the acyclovir. Stop acyclovir. Repeat TCK. Renal US to exclude obstruction. (5) Dysphagia: Code(s): R13.10 - Dysphagia, unspecified Status: Acute Assessment and Plan: Patient failed MBS on 05/07/20. The family has been notified and PEG tube is being considered. Repeat swallow evaluation done today. Follow up on results. Currently on TPN but swallow evaluation done today. Consider TF if unable to swallow. (6) Metabolic encephalopathy: Code(s): G93.41 - Metabolic encephalopathy Status: Acute Assessment and Plan: As above. Related to the acute CVA. (7) Dehydration: Code(s): E86.0 - Dehydration Status: Acute Assessment and Plan: Cr more elvated but doubt related to dehydration. Currently on TPN but swallow evaluation done today. COnsider TF if unable to swallow. (8) Shingles: Code(s): B02.9 - Zoster without complications Status: Acute Assessment and Plan: Clinically unlikely to be shingles. Stop iv acyclovir (9) Neck pain: Code(s): M54.2 - Cervicalgia Status: Acute Assessment and Plan: CT C-spine showing severe cervical spondylosis. He may have torticollis as well. Instructed RN to lay patient on right side to help improve. PT/OT. (10) Prostate cancer: Code(s): C61 - Malignant neoplasm of prostate Status: Acute Assessment and Plan: Has been on salvage therapy for his metastatic prostate CA. PSA 9. Subjective Date/time seen: 05/10/20 12:16 Interval history: 84yo male with metastatic prostate cancer here for AMS and found to have had acute CVA. Assuming care. Chart reviewed. Patient is alert but confused. no problems overnight. Nursing states patient has been having improvement in his aphasia. Exam Narrative: Exam Narrative: AF 98.1 145/85 142 15 97%RA Gen - NARD HEENT - PERRL, sclear clear. ?mild left facial d
--- NOTE | 2020-05-10 12:28 | PC.NURSE ---
Pt not fully able to receive stroke teaching appropriately, will wait to go over teaching with family.
[2020-05-10] MEDS: METOPROLOL TARTRATE INJ 5 MG/5 ML VIAL IV PUSH ×2 (12:55→18:35)
--- NOTE | 2020-05-10 13:03 | PCSTNOTE ---
05/10/20: Please refer to the Modified Barium Swallow Evaluation in the EMR.
--- NOTE | 2020-05-10 13:20 | PCNFU ---
Nutrition Follow-Up Complete: Inadequate Oral Intake as related to change of mental status as evidenced by NPO Goal:Meet estimated nutritional needs. Progressing towards goal. We will continue current goal. Pt current nutrition is Pureed, Level 4. Nutrition recommendation:Agree Last recorded weight is 68.2 kg. Bowel Motility:+BM 05/09 Labs Reviewed: GFR 32, K 3.2,BUN 46,Cr 2.0 Meds Noted:Clinimix 4.25/5 and 250 ml of 20% Lipid Emulsion at 80 ml/hr, Lopressor Additional Notes: Patient more alert today. MBS today-05/10/20 speech is recommending Pureed, Level 4 diet. I would also recommend Ensure Enlive TID for an additional 350 kcals and 20 gms protein. PPN at this time is providing an additional 1153 kcals and 82 gms protein. PO intake is encouraged. Monitoring; Will monitor every T/F.
[2020-05-10] MEDS: ENOXAPARIN 30 MG/0.3 ML SYRINGE SUB-Q (15:11)
--- NOTE | 2020-05-10 15:58 | PC.NURSE ---
Call was placed to Dr. Clarke office to try to obtain a recent medication list, was on hold for a little over 7 minutes with no answer.
[2020-05-11] VITALS (14 sets, daily range): BP systolic 107–184; BP diastolic 63–90; PULSE 68–124; RESP 14–18; TEMP 36.2–36.8; O2SAT 96–98
[2020-05-11] MEDS: METOPROLOL TARTRATE INJ 5 MG/5 ML VIAL IV PUSH ×3 (00:23→12:55)
[2020-05-11 06:06] LABS: Hematocrit 25.6 % (42.0-52.0); Hemoglobin 8.5 g/dL (14.0-18.0); Immature Platelet Fraction Pct 4.8 % (0.9-11.2); Mean Corpuscular HGB Conc 33.2 g/dl (32-36); Mean Corpuscular Hemoglobin 30.1 pg (26-34); Mean Corpuscular Volume 90.8 fl (80-100); Mean Platelet Volume 10.8 fl (7.4-10.4); Platelet Count Result 135 k/mm3 (150-375); Red Blood Count 2.82 M/mm3 (4.6-6.20); Red Cell Distribution Width 13.2 % (11.5-14.5); White Blood Count 6.2 K/mm3 (4.5-10.0)
[2020-05-11 06:17] LABS: Anion Gap 9.2 mmol/L (7-16); Blood Urea Nitrogen 50 mg/dL (9-20); Calcium 8.3 mg/dL (8.4-10.2); Carbon Dioxide 27 mmol/L (22-30); Chloride 104 mmol/L (98-107); Cholesterol 129 mg/dL (0-200); Creatine Kinase 90 U/L (55-170); Estimated CRCL calculation 31 ml/min; Estimated Glomerular Filt Rate 44; Glucose 128 mg/dL (75-110); HDL Direct 20 mg/dL; Phosphorus 4.7 mg/dL (2.5-4.5); Potassium 3.2 mmol/L (3.4-5.0); Sodium 137 mmol/L (137-145); Triglycerides 118 mg/dL (<150)
[2020-05-11 06:28] LABS: LDL Cholesterol Direct 87 mg/dL
[2020-05-11 07:38] LABS: Glucose Point of Care 131 (65-105)
[2020-05-11] MEDS: ENOXAPARIN 30 MG/0.3 ML SYRINGE SUB-Q (08:05)
[2020-05-11] MEDS: ASPIRIN 300 MG SUPPOSITORY RECTAL (08:05)
[2020-05-11] MEDS: POTASSIUM CHLORIDE 20 MEQ PACKET (FOR LIQUID) PO (08:05)
[2020-05-11] MEDS: AMINO ACIDS 4.25%/D5W/LYTES/CA 2,000 ML 80 ML IV CONT (10:58)
[2020-05-11] MEDS: FAT EMULSIONS IV 20% 250 ML 20.8 ML IVPB (10:59)
[2020-05-11 11:52] LABS: Glucose Point of Care 282 (65-105)
[2020-05-11 11:52] LABS: Glucose Point of Care 140 (65-105)
--- NOTE | 2020-05-11 12:56 | PCNFU ---
Nutrition Follow-Up Complete: Inadequate Oral Intake as related to change of mental status as evidenced by NPO Goal: Meet estimated nutritional needs. Limited progress on goal. We will continue current goal. Pt current nutrition is Pureed, Level 4. Nutrition recommendation: Agree with diet orders. Last recorded weight is 68.2 kg. Bowel Motility:+BM 8/2 reported Labs Reviewed:PO4 4.7,K 3.2,GFR 44,BUN 50, Cr 1.5 Meds Noted:Lopressor, Lovenox Additional Notes: Patient seen today for nutrition follow. Nursing assisted patient with Ensure Supplement this morning, he did drink 240 ml for breakfast and 20 ml for lunch while refusing his Pureed meals. Nursing states he had difficulty with the KCL liquid today, which is a thin consistency liquid. PPN has been discontinue due to IV occlusion. Patient has been put on calorie count today and will be followed for 3 days. Discussed with nursing today documentation of food amounts on tickets. Patient will also be given the following supplements for increased kcal needs. Ensure Enlive TID (350 kcals and 20 gms protein)and Nutritional Treat supplement TID (300 kcals and 9 gms protein). Monitoring: Will monitor daily.
--- NOTE | 2020-05-11 14:31 | PC.NURSE ---
Went over stroke teaching with Merna.
--- NOTE | 2020-05-11 14:52 | WPDNEUROPN ---
Progress Note: A&P Assessment and Plan (1) Prostate cancer: Code(s): C61 - Malignant neoplasm of prostate Status: Acute (2) DANISH (acute kidney injury): Code(s): N17.9 - Acute kidney failure, unspecified Status: Acute (3) Atrial fibrillation with rapid ventricular response: Code(s): I48.91 - Unspecified atrial fibrillation Status: Acute (4) Acute CVA (cerebrovascular accident): Code(s): I63.9 - Cerebral infarction, unspecified Status: Acute (5) Dysphagia: Code(s): R13.10 - Dysphagia, unspecified Status: Acute (6) Neck pain: Code(s): M54.2 - Cervicalgia Status: Acute (7) Gait disorder: Code(s): R26.9 - Unspecified abnormalities of gait and mobility Status: Acute (8) Dementia: Code(s): F03.90 - Unspecified dementia without behavioral disturbance Status: Acute Additional Plan patient's mental status deteriorated dysphagia precludes the feeding and as I had recommended even initially the hospice care would be the appropriate measure which is being considered his was appraised and the prognosis at best is fair to poor because if he is unable to eat he most likely will dehydrated and rightly so the family has decided for no feeding tube so the hospice will with most appropriate care at this point Review of Systems Review of Systems: All systems reviewed & are unremarkable except as noted in HPI and below Exam Const: General: comfortable and no acute distress HENMT: General nose exam: Normal nares present Mouth: Yes moist mucous membranes Eyes: General: appearance normal, both eyes and all related structures Neck: Neck: supple and no JVD Resp: Effort & Inspection: normal respiratory effort Auscultation: clear to auscultation bilaterally Cardio: Rate: regular rate Rhythm: regular rhythm GI: Auscultation: normal bowel sounds Neuro: Other: patient is completely aphasic does respond to deep pain is arousable without much lateralizing focal weakness this is a change from a previous examination performed a few days ago and the MR brain MRI confirms the presence of bilateral stroke 1 in the left hemisphere 1 in the right hemisphere patient clearly has dysphagia and will not be able to eat Extrem: General: normal to inspection Psych: Other: patient is aphasic now Objective Data Vital Signs Vital Signs: Vital Signs - 24 hr 05/10/20 18:35 05/10/20 18:41 05/10/20 19:29 Temperature 36.3 C L Pulse Rate 108 H 87 Respiratory Rate 19 Blood Pressure 151/76 H 156/92 H Pulse Oximetry 99 05/10/20 20:00 05/11/20 00:00 05/11/20 00:23 Temperature Pulse Rate 95 109 H 101 H Respiratory Rate Blood Pressure Pulse Oximetry 05/11/20 04:00 05/11/20 06:00 05/11/20 06:10 Temperature 36.2 C L Pulse Rate 113 H 108 H 108 H Respiratory Rate 18 Blood Pressure 184/82 H Pulse Oximetry 98 05/11/20 07:58 05/11/20 08:00 05/11/20 12:00 Temperature Pulse Rate 93 124 H Respiratory Rate Blood Pressure 148/90 H Pulse Oximetry 05/11/20 12:55 05/11/20 14:12 Temperature 36.8 C Pulse Rate 121 H 68 Respiratory Rate 14 Blood Pressure 155/75 H Pulse Oximetry 96 Intake/Output Intake/Output: Intake & Output 05/08/20 05/09/20 05/10/20 05/11/20 23:59 23:59 23:59 23:59 Intake Total 2207 1131 2711 2149 Output Total 750 032 046 4408 Balance 6734 539 8332 399 Meds/Results Medications: Active Medications Generic Name Dose Route Start Last Admin Trade Name Freq PRN Reason Stop Dose Admin Aspirin 300 mg 05/10/20 09:00 05/11/20 08:05 Aspirin Suppository RECTAL 300 mg DAILY SAILAJA Administration Enoxaparin Sodium 30 mg 05/10/20 14:13 05/11/20 08:05 Lovenox SUB-Q 30 mg DAILY SAILAJA Administration Hydromorphone HCl 0.5 mg 05/09/20 10:40 05/09/20 12:52 Dilaudid Inj IV PUSH 0.5 mg Q8H PRN Administration Pain Rated 7-10 Acyclovir Sodiu
--- NOTE | 2020-05-11 15:50 | PM.IMPN ---
Progress Note: A&P Assessment and Plan (1) Acute CVA (cerebrovascular accident): Code(s): I63.9 - Cerebral infarction, unspecified Status: Acute Assessment and Plan: MRI showing punctate acute cortical infarction in the left occipital lobe and another in the right-sided parietal lobe. EKG repeated and probably AFib now. Carotid US <50% bilateral carotid stenosis. Echo showing EF 70%. Continue ASA. Not able to go to [facility]. SNF probably or private pay. Continue PT/OT Home meds brought i but most medicatin bottles are old and probably not taking regularly. (2) Altered mental status: Qualifiers: Altered mental status type: unspecified Qualified Code(s): R41.82 - Altered mental status, unspecified Code(s): R41.82 - Altered mental status, unspecified Status: Acute Assessment and Plan: Patient brought to ER via EMS from home after he had been lying prone in bed for 3 days without oral intake. He was alert but confused. His confusion appears to be improving but persistent. CT brain 05/05/20 showing no acute findings. Cervical spine CT showing severe cervical spondylosis. Elevated WBC without clear source but now normal. He did have low grade fever on 05/07 wihtout clear etiology. PSA 9 which is higher than his baseline. DANISH has developed. Brain MRI showing punctate acute cortical infarction in the left occipital lobe and another in the right-sided parietal lobe. Mental status better and feel these findings related to CVA. (3) Atrial fibrillation with rapid ventricular response: Code(s): I48.91 - Unspecified atrial fibrillation Status: Acute Assessment and Plan: HR as high as 140's. EKG reviewed and P waves not as readily seen as prior EKG to suggest AFib. Lopressor IV added with improved rate control. Lovenox for DVT prophylaxis but hold on full anticoagulation. (4) DANISH (acute kidney injury): Code(s): N17.9 - Acute kidney failure, unspecified Status: Acute Assessment and Plan: Cr better at 1.5 today. Cr normal on admission. Possibly related to the acyclovir. Acyclovir stopped. Repeat TCK normal. Renal US showing right hydronephrosis. Has Ruiz in place. As above so will hold on further workup. (5) Dysphagia: Code(s): R13.10 - Dysphagia, unspecified Status: Acute Assessment and Plan: Patient failed MBS on 05/07/20. Repeat swallow evaluation done 05/10/20howing patiet can tolerate some oral intake. His swallowing is very slow. RN states patietn coughing when swallowing as well. Aspiration precautions (6) Metabolic encephalopathy: Code(s): G93.41 - Metabolic encephalopathy Status: Acute Assessment and Plan: As above. Related to the acute CVA. (7) Dehydration: Code(s): E86.0 - Dehydration Status: Acute Assessment and Plan: Able to start oral intake yesterday but not eating much. Calorie count ordered. Okay to stop TPN. (8) Shingles: Code(s): B02.9 - Zoster without complications Status: Acute Assessment and Plan: Clinically unlikely to be shingles. Acyclovir stopped (9) Neck pain: Code(s): M54.2 - Cervicalgia Status: Acute Assessment and Plan: CT C-spine showing severe cervical spondylosis. He may have torticollis as well. Continue to work with PT/OT. (10) Prostate cancer: Code(s): C61 - Malignant neoplasm of prostate Status: Acute Assessment and Plan: Has been on salvage therapy for his metastatic prostate CA. PSA 9. Subjective Date/time seen: 05/11/20 15:50 Interval history: 84yo male with metastatic prostate cancer here for AMS and found to have had acute CVA. Slept off and on. Alert but confused. Hx difficult to obtain and unreliable. RN states they tried to get him up to the side of the bed Review of Systems Review of Systems: ROS unobtainable: Yes
[2020-05-11 16:26] LABS: Glucose Point of Care 119 (65-105)
[2020-05-11] MEDS: METOPROLOL TARTRATE 25 MG TABLET PO (21:00)
[2020-05-12] VITALS (14 sets, daily range): BP systolic 105–156; BP diastolic 50–88; PULSE 71–125; RESP 14–16; TEMP 36.2–36.5; O2SAT 97–98
[2020-05-12 06:03] LABS: Triglycerides 150 mg/dL (<150)
[2020-05-12 06:05] LABS: Anion Gap 10.3 mmol/L (7-16); Blood Urea Nitrogen 49 mg/dL (9-20); Calcium 8.2 mg/dL (8.4-10.2); Carbon Dioxide 28 mmol/L (22-30); Chloride 104 mmol/L (98-107); Estimated CRCL calculation 41 ml/min; Estimated Glomerular Filt Rate 58; Glucose 104 mg/dL (75-110); Phosphorus 4.3 mg/dL (2.5-4.5); Potassium 3.3 mmol/L (3.4-5.0); Sodium 139 mmol/L (137-145)
[2020-05-12] MEDS: ASPIRIN 81 MG CHEWABLE TABLET PO (08:11)
[2020-05-12] MEDS: METOPROLOL TARTRATE 25 MG TABLET PO ×3 (08:11→21:20)
[2020-05-12] MEDS: POTASSIUM CHLORIDE 20 MEQ PACKET (FOR LIQUID) PO (08:12)
[2020-05-12] MEDS: ENOXAPARIN 30 MG/0.3 ML SYRINGE SUB-Q (08:12)
[2020-05-12 12:36] LABS: Glucose Point of Care 187 (65-105)
--- NOTE | 2020-05-12 13:27 | PCDIET ---
Calorie Count Lunch 05/11-refused meal, drank 100% of Ensure 350 kcals and 20 gms protein. apporx: 350 kcals Dinner 05/11-refused meal Bkfast 05/12-100% of ensure 350 kcals and 20 gms protein and 50% of nutritional treat. approx: 500 kcals snack 05/12-100% cranberry juice approx 70 kcals. Lunch05/12-refused meal. Will continue calorie count through 05/14. At this time patient is unable to meet estimated caloric needs. Diet supplements will remain on trays and PO intake is encouraged. Will monitor daily.
--- NOTE | 2020-05-12 16:16 | WPDNEUROPN ---
Progress Note: A&P Assessment and Plan (1) Dementia: Code(s): F03.90 - Unspecified dementia without behavioral disturbance Status: Acute (2) Gait disorder: Code(s): R26.9 - Unspecified abnormalities of gait and mobility Status: Acute (3) Prostate cancer: Code(s): C61 - Malignant neoplasm of prostate Status: Acute (4) DANISH (acute kidney injury): Code(s): N17.9 - Acute kidney failure, unspecified Status: Acute (5) Atrial fibrillation with rapid ventricular response: Code(s): I48.91 - Unspecified atrial fibrillation Status: Acute (6) Acute CVA (cerebrovascular accident): Code(s): I63.9 - Cerebral infarction, unspecified Status: Acute (7) Dysphagia: Code(s): R13.10 - Dysphagia, unspecified Status: Acute (8) Neck pain: Code(s): M54.2 - Cervicalgia Status: Acute (9) Dehydration: Code(s): E86.0 - Dehydration Status: Acute (10) Altered mental status: Qualifiers: Altered mental status type: unspecified Qualified Code(s): R41.82 - Altered mental status, unspecified Code(s): R41.82 - Altered mental status, unspecified Status: Acute (11) Stroke: Code(s): I63.9 - Cerebral infarction, unspecified Status: Acute Additional Plan is not clear to me what the family has decided about his overall physical status and what they wish to do the last time I spoke with the she was unsure and she was to speak with her son about the planned but they have been their mind about this gentleman Review of Systems Review of Systems: All systems reviewed & are unremarkable except as noted in HPI and below Exam Const: General: comfortable and no acute distress HENMT: General nose exam: Normal nares present Mouth: Yes moist mucous membranes Eyes: General: appearance normal, both eyes and all related structures Neck: Neck: supple and no JVD Resp: Effort & Inspection: normal respiratory effort Auscultation: clear to auscultation bilaterally Cardio: Rate: regular rate Rhythm: regular rhythm GI: Auscultation: normal bowel sounds Skin: General skin exam: normal color and no rashes or lesions noted Neuro: Other: patient is aphasic without any lateralizing deficits Psych: Other: aphasia of significant degree Objective Data Vital Signs Vital Signs: Vital Signs - 24 hr 05/11/20 20:00 05/11/20 21:00 05/11/20 22:39 Temperature 36.8 C Pulse Rate 110 H 110 H 90 Respiratory Rate 16 Blood Pressure 107/63 Pulse Oximetry 97 05/12/20 00:00 05/12/20 04:00 05/12/20 05:49 Temperature 36.5 C Pulse Rate 97 100 88 Respiratory Rate 16 Blood Pressure 140/78 Pulse Oximetry 98 05/12/20 08:00 05/12/20 08:11 05/12/20 12:00 Temperature Pulse Rate 110 H 124 H 119 H Respiratory Rate Blood Pressure Pulse Oximetry 05/12/20 13:28 05/12/20 13:40 05/12/20 14:00 Temperature 36.2 C L Pulse Rate 124 H 124 H 120 H Respiratory Rate 14 Blood Pressure 105/50 L 105/50 L Pulse Oximetry 97 05/12/20 16:00 Temperature Pulse Rate 118 H Respiratory Rate Blood Pressure Pulse Oximetry Intake/Output Intake/Output: Intake & Output 05/09/20 05/10/20 05/11/20 05/12/20 23:59 23:59 23:59 23:59 Intake Total 1131 2711 2159 20 Output Total 057 122 6801 800 Balance 231 8277 -485 -569 Meds/Results Medications: Active Medications Generic Name Dose Route Start Last Admin Trade Name Freq PRN Reason Stop Dose Admin Aspirin 81 mg 05/12/20 08:00 05/12/20 08:11 Aspirin Chewable PO 81 mg DAILY@0800 [facility] Administration Enoxaparin Sodium 30 mg 05/10/20 14:13 05/12/20 08:12 Lovenox SUB-Q 30 mg DAILY SAILAJA Administration Dextrose 1,000 mls @ 50 mls/hr 05/09/20 08:45 Dextrose 10% IV CONT .Q20H PRN if PN is interrupted Metoprolol Tartrate 25 mg 05/11/20 21:00 05/12/20 08:11 Lopressor PO 25 mg Q12HR
--- NOTE | 2020-05-12 17:02 | PM.IMPN ---
Progress Note: A&P Assessment and Plan (1) Acute CVA (cerebrovascular accident): Code(s): I63.9 - Cerebral infarction, unspecified Status: Acute Assessment and Plan: MRI showing punctate acute cortical infarction in the left occipital lobe and another in the right-sided parietal lobe. EKG repeated and probably AFib now. Carotid US <50% bilateral carotid stenosis. Echo showing EF 70%. Continue ASA. Not able to go to [facility]. Plan for SNF. Continue PT/OT Home meds were brought in but most medication bottles are old and probably he is not taking regularly. (2) Altered mental status: Qualifiers: Altered mental status type: unspecified Qualified Code(s): R41.82 - Altered mental status, unspecified Code(s): R41.82 - Altered mental status, unspecified Status: Acute Assessment and Plan: Patient brought to ER via EMS from home after he had been lying prone in bed for 3 days without oral intake. He was alert but confused. His confusion appears to be improving but persistent. CT brain 05/05/20 showing no acute findings. Cervical spine CT showing severe cervical spondylosis. Elevated WBC without clear source but now normal. He did have low grade fever on 05/07 without clear etiology. PSA 9 which is higher than his baseline. DANISH has developed. Brain MRI showing punctate acute cortical infarction in the left occipital lobe and another in the right-sided parietal lobe. Mental status better but still with significant deficits. (3) Atrial fibrillation with rapid ventricular response: Code(s): I48.91 - Unspecified atrial fibrillation Status: Acute Assessment and Plan: HR as high as 140's. EKG reviewed and P waves not as readily seen as prior EKG to suggest AFib. Lopressor IV added with improved rate control. Lovenox for DVT prophylaxis but hold on full anticoagulation. Able to be changed to oral metoprolol but HR still elevated so will increase frequency. Continue tele. (4) DANISH (acute kidney injury): Code(s): N17.9 - Acute kidney failure, unspecified Status: Acute Assessment and Plan: Cr better at 1.2 today. Cr normal on admission. Repeat TCK normal. Renal US showing right hydronephrosis. Has Ruiz in place. Possibly related to the acyclovir which was stopped. Continue to monitor. (5) Dysphagia: Code(s): R13.10 - Dysphagia, unspecified Status: Acute Assessment and Plan: Patient failed MBS on 05/07/20. Repeat swallow evaluation done 05/10/20howing patient can tolerate some oral intake. His swallowing is very slow. RN states patient coughing when swallowing as well. Aspiration precautions in place. (6) Metabolic encephalopathy: Code(s): G93.41 - Metabolic encephalopathy Status: Acute Assessment and Plan: As above. Related to the acute CVA. (7) Dehydration: Code(s): E86.0 - Dehydration Status: Acute Assessment and Plan: Able to start oral intake but not eating much. Calorie count ordered. (8) Shingles: Code(s): B02.9 - Zoster without complications Status: Acute Assessment and Plan: Clinically unlikely to be shingles. Acyclovir stopped (9) Neck pain: Code(s): M54.2 - Cervicalgia Status: Acute Assessment and Plan: CT C-spine showing severe cervical spondylosis. He has torticollis that is worsening. Continue PT/OT. Check neck soft tissue. (10) Prostate cancer: Code(s): C61 - Malignant neoplasm of prostate Status: Acute Assessment and Plan: Has been on salvage therapy for his metastatic prostate CA. PSA 9. Subjective Date/time seen: 05/12/20 17:02 Interval history: 84yo male with metastatic prostate cancer here for AMS and found to have had acute CVA. No issues overnight. at bedside and states patiet with neck pain prior to admisison Patietn ate small amount of ice c
[2020-05-12 22:31] LABS: Glucose Point of Care 130 (65-105)
[2020-05-13] VITALS (18 sets, daily range): BP systolic 116–155; BP diastolic 56–94; PULSE 66–140; RESP 16–20; TEMP 36.1–37; O2SAT 94–98
--- NOTE | 2020-05-13 00:26 | PC.NURSE ---
Pt off floor for CT at 0020
--- NOTE | 2020-05-13 02:06 | ECG_ITS ---
Measurements Intervals [place] Rate: 134 P: [place]: 0 QRS: -24 QRSD: 108 T: -10 QT: 335 QTc: 501 Interpretive Statements MULTIFOCAL ATRIAL TACHYCARDIA ATRIAL AND VENTRICULAR PREMATURE COMPLEXES BORDERLINE R WAVE PROGRESSION, ANTERIOR LEADS MINIMAL Q WAVES- HIGH LATERAL LEADS BASELINE ARTIFACT- I, II, III, AVR, AVL, AVF, V1 ABNORMAL ECG Electronically Signed On 05-13-2020 7:00:54 CDT by Jose Guidry D.O.
--- NOTE | 2020-05-13 02:23 | PM.EVENT ---
Event Note Event Note Event Note: This is an 84 year old male being treated for an acute cortical infarction in the left occipital lobe and right-sided parietal lobe with known atrial fibrillation who tonight developed tachycardia w/ HR in the 150s. Nursing staff alerted me to the patient's heart rate. ON arrival to bedside the patient is awake and does not appear to be in any distress. EKG demonstrated atrial fibrillation w/ RVR w/ HR of 134 bpm. We will plan to transfer the patient to IMU, Initiate Cardizem IV bolus and drip for rate control. Anticoagulation is currently on hold and the patient is only being given prophylactic Lovenox. Will reassess as needed.
--- NOTE | 2020-05-13 03:10 | PC.NURSE ---
This patient, Lucas Cervantes, was received from [facility] TO IMU 204 on 05/13/20 at 0305. REPORT FROM KIM STOCKTON. Personal belongings list checked and signed. Patient/family oriented to unit policies and routines
--- NOTE | 2020-05-13 03:13 | PC.NURSE ---
This patient, Lucas Cervantes, was transferred to [ IMU 204] on 05/13/20 at 0313. Personal belongings sent with patient. Belongings list checked and signed. Report given to [ Annie STOCKTON]. Appropriate documentation sent with patient.
[2020-05-13] MEDS: dilTIAZem HCl INJ 25 MG/5 ML VIAL 10 MG IV PUSH (03:17)
[2020-05-13 04:52] LABS: Basophils Percent Auto 0.2 % (0.2-1.2); Hematocrit 30.5 % (42.0-52.0); Hemoglobin 9.9 g/dL (14.0-18.0); Immature Granulocyte Absolute 0.07 K/mm3 (0.00-0.031); Immature Granulocyte Percent A 0.8 % (0-0.5); Lymphocytes Absolute Auto 0.24 K/mm3 (0.9-3.2); Lymphocytes Percent Auto 2.8 % (18.3-44.2); Mean Corpuscular HGB Conc 32.5 g/dl (32-36); Mean Corpuscular Hemoglobin 30.3 pg (26-34); Mean Corpuscular Volume 93.3 fl (80-100); Mean Platelet Volume 10.5 fl (7.4-10.4); Monocytes Absolute Auto 0.6 K/mm3 (0.1-0.6); Monocytes Percent Auto 6.7 % (2.6-8.5); Neutrophils Absolute Auto 7.6 K/mm3 (1.3-6.7); Neutrophils Percent Auto 89.5 % (45.5-73.1); Nucleated Red Blood Cells Perc 0.4 % (0.0-0.2); Platelet Count Result 178 k/mm3 (150-375); Red Blood Count 3.27 M/mm3 (4.6-6.20); Red Cell Distribution Width 13.3 % (11.5-14.5); White Blood Count 8.5 K/mm3 (4.5-10.0)
[2020-05-13 05:03] LABS: Albumin Level 2.8 g/dL (3.5-5.1); Anion Gap 9.2 mmol/L (7-16); Blood Urea Nitrogen 44 mg/dL (9-20); Calcium 8.6 mg/dL (8.4-10.2); Carbon Dioxide 29 mmol/L (22-30); Chloride 105 mmol/L (98-107); Estimated CRCL calculation 45 ml/min; Estimated Glomerular Filt Rate > 60; Glucose 120 mg/dL (75-110); Magnesium 1.7 mg/dL (1.6-2.3); Phosphorus 3.4 mg/dL (2.5-4.5); Potassium 3.2 mmol/L (3.4-5.0); Sodium 140 mmol/L (137-145)
[2020-05-13 06:06] LABS: Glucose Point of Care 130 (65-105)
[2020-05-13] MEDS: ENOXAPARIN 30 MG/0.3 ML SYRINGE SUB-Q (07:57)
[2020-05-13] MEDS: ASPIRIN 81 MG CHEWABLE TABLET PO (08:06)
[2020-05-13 08:12] LABS: Glucose Point of Care 125 (65-105)
[2020-05-13 11:41] LABS: Glucose Point of Care 159 (65-105)
--- NOTE | 2020-05-13 12:20 | WPDNEUROPN ---
Progress Note: A&P Assessment and Plan (1) Stroke: Code(s): I63.9 - Cerebral infarction, unspecified Status: Acute (2) Dementia: Code(s): F03.90 - Unspecified dementia without behavioral disturbance Status: Acute (3) Prostate cancer: Code(s): C61 - Malignant neoplasm of prostate Status: Acute (4) Gait disorder: Code(s): R26.9 - Unspecified abnormalities of gait and mobility Status: Acute (5) DANISH (acute kidney injury): Code(s): N17.9 - Acute kidney failure, unspecified Status: Acute (6) Atrial fibrillation with rapid ventricular response: Code(s): I48.91 - Unspecified atrial fibrillation Status: Acute (7) Acute CVA (cerebrovascular accident): Code(s): I63.9 - Cerebral infarction, unspecified Status: Acute (8) Dysphagia: Code(s): R13.10 - Dysphagia, unspecified Status: Acute (9) Neck pain: Code(s): M54.2 - Cervicalgia Status: Acute (10) Metabolic encephalopathy: Code(s): G93.41 - Metabolic encephalopathy Status: Acute Additional Plan patient is high risk for anticoagulation however if he remains bedfast than that can be given to prevent him and other stroke on that will probably be rather devastating I do not believe is going to be ambulatory with a condition he is now a consideration for anticoagulation can be given if the family agrees understanding the risk in the benefits of anticoagulation any further until they agree because they could not decide about the hospice versus further care in any event I will see him on May 14 this is noted reflecting from note of May 13 Review of Systems Review of Systems: All systems reviewed & are unremarkable except as noted in HPI and below Exam Const: General: comfortable and no acute distress HENMT: General nose exam: Normal nares present Mouth: Yes moist mucous membranes Eyes: General: appearance normal, both eyes and all related structures Neck: Neck: supple and no JVD Resp: Effort & Inspection: normal respiratory effort Auscultation: clear to auscultation bilaterally Cardio: Other: irregularly irregular rhythm GI: Auscultation: normal bowel sounds Neuro: Other: patient's is aphasic send generalized weakness bilateral Extrem: General: normal to inspection Psych: Other: aphasia Objective Data Vital Signs Vital Signs: Vital Signs - 24 hr 05/13/20 14:00 05/13/20 14:17 05/13/20 16:00 Temperature 36.7 C Pulse Rate 120 H 127 H 109 H Respiratory Rate 18 Blood Pressure 116/81 Pulse Oximetry 97 05/13/20 18:00 05/13/20 20:00 05/13/20 20:18 Temperature 36.2 C L Pulse Rate 95 83 74 Respiratory Rate 16 Blood Pressure 129/93 H Pulse Oximetry 95 05/13/20 21:04 05/13/20 22:00 05/13/20 23:55 Temperature 36.4 C Pulse Rate 100 66 82 Respiratory Rate 16 Blood Pressure 132/56 L Pulse Oximetry 94 05/14/20 00:00 05/14/20 02:00 05/14/20 04:00 Temperature Pulse Rate 83 78 88 Respiratory Rate Blood Pressure Pulse Oximetry 05/14/20 04:41 05/14/20 06:00 05/14/20 08:00 Temperature 36.0 C L 36.6 C Pulse Rate 83 73 94 Respiratory Rate 18 18 Blood Pressure 151/67 H 139/47 L Pulse Oximetry 97 99 05/14/20 10:00 05/14/20 12:00 Temperature Pulse Rate 97 112 H Respiratory Rate Blood Pressure Pulse Oximetry Intake/Output Intake/Output: Intake & Output 05/11/20 05/12/20 05/13/20 05/14/20 23:59 23:59 23:59 23:59 Intake Total 2159 20 234 Output Total 2575 800 300 846 Balance -416 -780 -66 -475 Meds/Results Medications: Active Medications Generic Name Dose Route Start Last Admin Trade Name Hank PRN Reason Stop Dose Admin Aspirin 81 mg 05/12/20 08:00 05/14/20 08:08 Aspirin Chewable PO 81 mg DAILY@0800 [facility] Administration Diltiazem HCl 60 mg 05/13/20 18:00 05/14/20 11:57 Cardizem Tab PO 60 mg Q6HR [facility] Administration Enoxapar
--- NOTE | 2020-05-13 13:33 | PCDIET ---
Calorie Count Bkfast 8/6-4-5 bites of pancake, bites of applesauce and 1/4 of Ensure Enlive Lunch 8/6-3 bites of turkey/gravy, 3 bites of mashed potatoes, sip of Ensure Enlive. Current calorie count is not meeting caloric needs. If family wishes to continue aggressive care would recommend supplemental tube feedings to meet caloric needs. Monitoring every 3 days.
--- NOTE | 2020-05-13 13:38 | PCOTNOTE ---
Hold therapy per hospitalist due to decline in medical status. Will continue OT services when Medically appropriate.
--- NOTE | 2020-05-13 13:39 | PCPTNOTE ---
Attempted PT reeval following change in medical status and transfer to IMU. Spoke w/ Dr Yang, who stated to hold therapy.
[2020-05-13] MEDS: METOPROLOL TARTRATE 25 MG TABLET PO ×2 (14:17→21:04)
--- NOTE | 2020-05-13 14:48 | PM.IMPN ---
Progress Note: A&P Assessment and Plan (1) Acute CVA (cerebrovascular accident): Code(s): I63.9 - Cerebral infarction, unspecified Status: Acute Assessment and Plan: MRI showing punctate acute cortical infarction in the left occipital lobe and another in the right-sided parietal lobe. EKG repeated and probably AFib now. Carotid US <50% bilateral carotid stenosis. Echo showing EF 70%. Continue ASA. Not able to go to [facility]. Plan for SNF. PT/OT on hold since patient not following commands Home meds were brought in but most medication bottles are old and probably he is not taking regularly. (2) Altered mental status: Qualifiers: Altered mental status type: unspecified Qualified Code(s): R41.82 - Altered mental status, unspecified Code(s): R41.82 - Altered mental status, unspecified Status: Acute Assessment and Plan: Patient brought to ER via EMS from home after he had been lying prone in bed for 3 days without oral intake. He was alert but confused. His confusion appears to be improving but persistent. CT brain 05/05/20 showing no acute findings. Cervical spine CT showing severe cervical spondylosis. Elevated WBC without clear source but now normal. He did have low grade fever on 05/07 without clear etiology. PSA 9 which is higher than his baseline. DANISH developed as mentioned below. Brain MRI showing punctate acute cortical infarction in the left occipital lobe and another in the right-sided parietal lobe. Mental status better but still with significant deficits. Placement in process (3) Atrial fibrillation with rapid ventricular response: Code(s): I48.91 - Unspecified atrial fibrillation Status: Acute Assessment and Plan: HR as high as 140's. EKG reviewed and P waves not as readily seen as prior EKG to suggest AFib. Lopressor IV added with improved rate control. Lovenox for DVT prophylaxis but hold on full anticoagulation. Changed to oral metoprolol and frequency increased. He was moved to IMU and started on Dilt drip. RN states patient refusinig oral medciations. Continue tele. (4) DANISH (acute kidney injury): Code(s): N17.9 - Acute kidney failure, unspecified Status: Acute Assessment and Plan: Cr better at 1.1 today. Cr normal on admission. Repeat TCK normal. Renal US showing right hydronephrosis. Has Ruiz in place. DANISH probably related to the acyclovir which was stopped. Continue to monitor. (5) Dysphagia: Code(s): R13.10 - Dysphagia, unspecified Status: Acute Assessment and Plan: Patient failed MBS on 05/07/20. Repeat swallow evaluation done 05/10/20 showing patient can tolerate some oral intake. His swallowing is very slow. RN states patient coughing when swallowing as well. Aspiration precautions in place. (6) Metabolic encephalopathy: Code(s): G93.41 - Metabolic encephalopathy Status: Acute Assessment and Plan: As above. Related to the acute CVA. (7) Dehydration: Code(s): E86.0 - Dehydration Status: Acute Assessment and Plan: Able to start oral intake but not eating much. Calorie count in process (8) Shingles: Code(s): B02.9 - Zoster without complications Status: Acute Assessment and Plan: Clinically unlikely to be shingles. Acyclovir stopped (9) Neck pain: Code(s): M54.2 - Cervicalgia Status: Acute Assessment and Plan: CT C-spine showing severe cervical spondylosis. He has torticollis. Neck soft tissue CT showing leftward torticollis of unclear etiology. Contineu to try to manipulate the neck to improve. (10) Prostate cancer: Code(s): C61 - Malignant neoplasm of prostate Status: Acute Assessment and Plan: Has been on salvage therapy for his metastatic prostate CA. PSA 9. Subjective Date/time seen: 05/13/20 14:48 Interval history: 84yo male with meta
[2020-05-13] MEDS: MAGNESIUM SULF 2 GM/WATER 50ML 2 GM/50 ML BAG IVPB (16:15)
[2020-05-13 16:30] LABS: Glucose Point of Care 145 (65-105)
[2020-05-13] MEDS: dilTIAZem HCL 60 MG TABLET PO ×2 (17:47→23:35)
[2020-05-13] MEDS: KCL 20 MEQ/SW 100 ML 100 ML 50 MEQ IVPB (17:47)
[2020-05-13 19:01] LABS: Glucose Point of Care 154 (65-105)
[2020-05-13 21:04] LABS: Glucose Point of Care 155 (65-105)
[2020-05-14] VITALS (15 sets, daily range): BP systolic 105–151; BP diastolic 47–84; PULSE 64–112; RESP 18–20; TEMP 36–37.3; O2SAT 94–99
[2020-05-14 04:51] LABS: Hematocrit 26.8 % (42.0-52.0); Hemoglobin 8.7 g/dL (14.0-18.0); Mean Corpuscular HGB Conc 32.5 g/dl (32-36); Mean Corpuscular Hemoglobin 30.2 pg (26-34); Mean Corpuscular Volume 93.1 fl (80-100); Mean Platelet Volume 10.9 fl (7.4-10.4); Platelet Count Result 193 k/mm3 (150-375); Red Blood Count 2.88 M/mm3 (4.6-6.20); Red Cell Distribution Width 13.6 % (11.5-14.5); White Blood Count 8.4 K/mm3 (4.5-10.0)
[2020-05-14 05:06] LABS: Anion Gap 7.3 mmol/L (7-16); Blood Urea Nitrogen 49 mg/dL (9-20); Calcium 8.6 mg/dL (8.4-10.2); Carbon Dioxide 31 mmol/L (22-30); Chloride 106 mmol/L (98-107); Estimated CRCL calculation 41 ml/min; Estimated Glomerular Filt Rate 58; Glucose 130 mg/dL (75-110); Magnesium 2.3 mg/dL (1.6-2.3); Potassium 3.3 mmol/L (3.4-5.0); Sodium 141 mmol/L (137-145)
[2020-05-14] MEDS: METOPROLOL TARTRATE 25 MG TABLET PO ×3 (05:11→22:32)
[2020-05-14] MEDS: dilTIAZem HCL 60 MG TABLET PO ×3 (05:12→17:17)
[2020-05-14] MEDS: ENOXAPARIN 30 MG/0.3 ML SYRINGE SUB-Q (08:08)
[2020-05-14] MEDS: ASPIRIN 81 MG CHEWABLE TABLET PO (08:08)
[2020-05-14 09:04] LABS: Glucose Point of Care 117 (65-105)
--- NOTE | 2020-05-14 11:27 | PM.IMPN ---
Progress Note: A&P Assessment and Plan (1) Acute CVA (cerebrovascular accident): Code(s): I63.9 - Cerebral infarction, unspecified Status: Acute Assessment and Plan: MRI showing punctate acute cortical infarction in the left occipital lobe and another in the right-sided parietal lobe. EKG repeated and AFib now. Carotid US <50% bilateral carotid stenosis. Echo showing EF 70%. Continue ASA. Not able to go to [facility]. Plan for SNF. PT/OT on hold since patient was not following commands but better today so will resume therapy. Suspect etiology of the CVAs are from his AFib. Home meds were brought in but most medication bottles are old and probably he is not taking regularly. (2) Altered mental status: Qualifiers: Altered mental status type: unspecified Qualified Code(s): R41.82 - Altered mental status, unspecified Code(s): R41.82 - Altered mental status, unspecified Status: Acute Assessment and Plan: Patient brought to ER via EMS from home after he had been lying prone in bed for 3 days without oral intake. CT brain 05/05/20 showing no acute findings. Cervical spine CT showing severe cervical spondylosis. Elevated WBC without clear source but now normal. He did have low grade fever on 05/07 without clear etiology. DANISH developed as mentioned below. Brain MRI showing punctate acute cortical infarction in the left occipital lobe and another in the right-sided parietal lobe. Mental status better today. Resume PT and OT. (3) Atrial fibrillation with rapid ventricular response: Code(s): I48.91 - Unspecified atrial fibrillation Status: Acute Assessment and Plan: HR as high as 140's. EKG reviewed and P waves not as readily seen as prior EKG to suggest AFib. Lopressor IV added with improved rate control. Lovenox for DVT prophylaxis but hold on full anticoagulation. Changed to oral metoprolol but had to be moved to IMU and started on Dilt drip. Changed to oral Diltiazem. We have continued the Metoprolol. Continue tele. (4) DANISH (acute kidney injury): Code(s): N17.9 - Acute kidney failure, unspecified Status: Acute Assessment and Plan: Cr stable at 1.2 today. Cr normal on admission. Repeat TCK normal. Renal US showing right hydronephrosis. Has Ruiz in place. DANISH probably related to the acyclovir which was stopped. Continue to monitor. (5) Dysphagia: Code(s): R13.10 - Dysphagia, unspecified Status: Acute Assessment and Plan: Patient failed MBS on 05/07/20. Repeat swallow evaluation done 05/10/20 showing patient can tolerate some oral intake. His swallowing is very slow but may improve. RN states patient coughing when swallowing as well. Aspiration precautions in place. (6) Metabolic encephalopathy: Code(s): G93.41 - Metabolic encephalopathy Status: Acute Assessment and Plan: As above. Related to the acute CVA. (7) Dehydration: Code(s): E86.0 - Dehydration Status: Acute Assessment and Plan: Able to start oral intake but not eating much. Speech is more fluid and he seems better. Maybe he will eat better today. Calorie count in process. (8) Shingles: Code(s): B02.9 - Zoster without complications Status: Acute Assessment and Plan: Clinically unlikely to be shingles. Acyclovir stopped (9) Neck pain: Code(s): M54.2 - Cervicalgia Status: Acute Assessment and Plan: CT C-spine showing severe cervical spondylosis. He has torticollis. Neck soft tissue CT showing leftward torticollis of unclear etiology. Better today. resume therapy (10) Prostate cancer: Code(s): C61 - Malignant neoplasm of prostate Status: Acute Assessment and Plan: Has been on salvage therapy for his metastatic prostate CA. PSA 9. Subjective Date/time seen: 05/14/20 11:27 Interval history: 84yo male with
[2020-05-14 12:23] LABS: Glucose Point of Care 122 (65-105)
--- NOTE | 2020-05-14 13:19 | PCNFU ---
Nutrition Follow-Up Complete: Inadequate Oral Intake as related to change of mental status as evidenced by NPO Goal: Meet estimated nutritional needs. Progressing towards goal. We will continue current goal. Pt current nutrition is Regular/Pureed, Level 4. Nutrition recommendation: Agree Last recorded weight is 77.4 kg. Bowel Motility:+BM noted 05/14 Labs Reviewed:K 3.2,Glu 120, Alb 2.8,BUN 44 Meds Noted: Lovenox, Lopressor Additional Notes: Patient seen today for nutritional follow up. More alert today, he did give me his lunch order which consisted of Pureed-green beans 0%, Pudding 100%, Ensure Enlive 50%. Plans for SNF, authorization pending. PO intake is encouraged, with current po intake patient is not meeting caloric needs. Hoping with increased alertness po intake will improve. Monitoring: Will monitor every 3 days.
[2020-05-14 16:47] LABS: Glucose Point of Care 152 (65-105)
[2020-05-14 20:50] LABS: Glucose Point of Care 142 (65-105)
[2020-05-15] VITALS (17 sets, daily range): BP systolic 102–169; BP diastolic 69–87; PULSE 70–130; RESP 12–24; TEMP 35.7–36.8; O2SAT 91–100; BMI 11.0; BMI 10.0
[2020-05-15] MEDS: dilTIAZem HCL 60 MG TABLET PO ×5 (00:43→23:41)
[2020-05-15] MEDS: METOPROLOL TARTRATE 25 MG TABLET PO ×3 (04:58→21:33)
[2020-05-15 07:46] LABS: Glucose Point of Care 128 (65-105)
[2020-05-15] MEDS: ASPIRIN 81 MG CHEWABLE TABLET PO (08:33)
[2020-05-15] MEDS: ENOXAPARIN 30 MG/0.3 ML SYRINGE SUB-Q (08:33)
[2020-05-15 11:33] LABS: Glucose Point of Care 150 (65-105)
--- NOTE | 2020-05-15 13:44 | PM.IMPN ---
Progress Note: A&P Assessment and Plan (1) Acute CVA (cerebrovascular accident): Code(s): I63.9 - Cerebral infarction, unspecified Status: Acute Assessment and Plan: MRI showing punctate acute cortical infarction in the left occipital lobe and another in the right-sided parietal lobe. EKG repeated and AFib now. Carotid US <50% bilateral carotid stenosis. Echo showing EF 70%. Continue ASA. Not able to go to [facility]. Plan for SNF. Suspect etiology of the CVAs are from his AFib. Continue therapy. Awaiting placement Home meds were brought in but most medication bottles are old and probably he is not taking regularly. (2) Altered mental status: Qualifiers: Altered mental status type: unspecified Qualified Code(s): R41.82 - Altered mental status, unspecified Code(s): R41.82 - Altered mental status, unspecified Status: Acute Assessment and Plan: Patient brought to ER via EMS from home after he had been lying prone in bed for 3 days without oral intake. CT brain 05/05/20 showing no acute findings. Cervical spine CT showing severe cervical spondylosis. Elevated WBC without clear source but now normal. He did have low grade fever on 05/07 without clear etiology. DANISH developed as mentioned below. Brain MRI showing punctate acute cortical infarction in the left occipital lobe and another in the right-sided parietal lobe. Mental status waxes and wanes. Continue PT and OT. (3) Atrial fibrillation with rapid ventricular response: Code(s): I48.91 - Unspecified atrial fibrillation Status: Acute Assessment and Plan: HR as high as 140's. EKG reviewed and P waves not as readily seen as prior EKG to suggest AFib. Lopressor IV added with improved rate control. Lovenox for DVT prophylaxis but holding on full anticoagulation given recent CVAs. Changed to oral metoprolol but had to be moved to IMU and started on Dilt drip. Changed to oral Diltiazem and have continued the Metoprolol. HR better controlled. (4) DANISH (acute kidney injury): Code(s): N17.9 - Acute kidney failure, unspecified Status: Acute Assessment and Plan: Cr stable at 1.2. Cr normal on admission. Repeat TCK normal. Renal US showing right hydronephrosis. Has Ryan in place. DANISH probably related to the acyclovir which was stopped. May be getting dehydrated. Continue to monitor. Okay to remove Ryan (5) Dysphagia: Code(s): R13.10 - Dysphagia, unspecified Status: Acute Assessment and Plan: Patient failed MBS on 05/07/20. Repeat swallow evaluation done 05/10/20 showing patient can tolerate some oral intake. His swallowing is very slow but may improve. RN states patient coughing when swallowing as well. Aspiration precautions in place. (6) Metabolic encephalopathy: Code(s): G93.41 - Metabolic encephalopathy Status: Acute Assessment and Plan: As above. Related to the acute CVA. Symptoms appear to wax and wane. Continue to follow. (7) Dehydration: Code(s): E86.0 - Dehydration Status: Acute Assessment and Plan: Able to start oral intake but not eating much. Family has refused to feeding tube. (8) Shingles: Code(s): B02.9 - Zoster without complications Status: Acute Assessment and Plan: Clinically unlikely to be shingles. Acyclovir stopped (9) Neck pain: Code(s): M54.2 - Cervicalgia Status: Acute Assessment and Plan: CT C-spine showing severe cervical spondylosis. He has torticollis. Neck soft tissue CT showing leftward torticollis of unclear etiology. stable. Continue therapy. (10) Prostate cancer: Code(s): C61 - Malignant neoplasm of prostate Status: Acute Assessment and Plan: Has been on salvage therapy for his metastatic prostate CA. PSA 9. (11) Anemia: Code(s): D64.9 - Anemia, unspecified Status: Acute
[2020-05-15 17:09] LABS: Glucose Point of Care 131 (65-105)
--- NOTE | 2020-05-15 17:58 | WPDNEUROPN ---
Progress Note: A&P Assessment and Plan (1) Anemia: Code(s): D64.9 - Anemia, unspecified Status: Acute (2) Stroke: Code(s): I63.9 - Cerebral infarction, unspecified Status: Acute (3) Dementia: Code(s): F03.90 - Unspecified dementia without behavioral disturbance Status: Acute (4) Gait disorder: Code(s): R26.9 - Unspecified abnormalities of gait and mobility Status: Acute (5) Prostate cancer: Code(s): C61 - Malignant neoplasm of prostate Status: Acute (6) Acute CVA (cerebrovascular accident): Code(s): I63.9 - Cerebral infarction, unspecified Status: Acute (7) Atrial fibrillation with rapid ventricular response: Code(s): I48.91 - Unspecified atrial fibrillation Status: Acute (8) Dysphagia: Code(s): R13.10 - Dysphagia, unspecified Status: Acute (9) Safety impairment: Status: Acute Additional Plan I discussed with his probably of the same age as he is she clearly also has memory dysfunction and is unable to recall whether discussion have a had at least on 3 different occasions previously I had to repeat would have said earlier she keeps on asking the same questions and I told her in no uncertain terms that based on what I have in my hand the patient will never be able to go back to his baseline I have also discussed with her about the use of the anticoagulation and I do not believe that she understands the implication of the same in any event it is my suggestion that if the anemia is not related to gastrointestinal bleeding anticoagulation can be started as long as the patient is not able to ambulate and somebody is watching him from a fall even from the bed or wheelchair is a poor risk for anticoagulation to begin with and the only reason 1 would use the anticoagulation to prevent him from having any future strokes which obviously is not a guarantee anywhere Is unfortunate that the was very caring and very cooperative does not understand the implication have discussed on several occasions but I tried my level best to make her understand and I will really sorry for both of them she did understand though that she also has a memory dysfunction and also a gait dysfunction which I could see when she walks Review of Systems Review of Systems: All systems reviewed & are unremarkable except as noted in HPI and below Exam Const: General: comfortable and no acute distress HENMT: General nose exam: Normal nares present Mouth: Yes moist mucous membranes Eyes: General: appearance normal, both eyes and all related structures Neck: Neck: supple and no JVD Resp: Effort & Inspection: normal respiratory effort Auscultation: clear to auscultation bilaterally Cardio: Other: irregularly irregular heart rate GI: Auscultation: normal bowel sounds Skin: General skin exam: normal color and no rashes or lesions noted Neuro: Other: patient is aphasic only say a mono syllable word which generalized weakness bilaterally both upper lower extremities Extrem: General: normal to inspection Psych: Other: significant cognitive dysfunction to begin with gotten worse to have after having had bihemispheric stroke particularly the left hemispheric stroke which has caused him to have aphasia Objective Data Vital Signs Vital Signs: Vital Signs - 24 hr 05/14/20 18:40 05/14/20 20:00 05/14/20 22:00 Temperature 37.3 C Pulse Rate 111 H 103 H 111 H Respiratory Rate 18 Blood Pressure 139/83 Pulse Oximetry 94 05/14/20 22:32 05/15/20 00:00 05/15/20 02:00 Temperature 36.2 C L Pulse Rate 109 H 108 H 121 H Respiratory Rate 18 Blood Pressure 150/69 H Pulse Oximetry 97 05/15/20 04:00 05/15/20 04:58 05/15/20 06:00 Temperature 36.8 C Pulse Rate 70 122 H 80 Respiratory Rate 18 Blood Pressure 169/77 H Pulse Oximetry 98 05/15/20 07:54 05/15/20 08:00 05/15/20 10:00 Temperature 36.8 C Pulse Rate 85 93 98
--- NOTE | 2020-05-15 18:25 | PC.NURSE ---
This patient, Lucas Cervantes, was transferred to [facility] on 05/15/20 at 1825. Personal belongings sent with patient. Belongings list checked and signed with receiving RN. Report given to KATH Lemus. Appropriate documentation sent with patient.
--- NOTE | 2020-05-15 18:32 | PC.NURSE ---
This patient, Lucas Cervantes, was received from [facility] on 05/15/20 at 1832. Personal belongings list checked and signed. Patient/family oriented to unit policies and routines. Report received from KATH Smith.
[2020-05-15 21:45] LABS: Glucose Point of Care 129 (65-105)
[2020-05-16] VITALS (14 sets, daily range): BP systolic 102–153; BP diastolic 55–92; PULSE 54–102; RESP 12–21; TEMP 36–36.8; O2SAT 92–100
[2020-05-16 05:39] LABS: Hematocrit 29.2 % (42.0-52.0); Hemoglobin 9.1 g/dL (14.0-18.0); Mean Corpuscular HGB Conc 31.2 g/dl (32-36); Mean Corpuscular Volume 96.4 fl (80-100); Mean Platelet Volume 10.8 fl (7.4-10.4); Platelet Count Result 270 k/mm3 (150-375); Red Blood Count 3.03 M/mm3 (4.6-6.20); Red Cell Distribution Width 14.2 % (11.5-14.5); White Blood Count 9.1 K/mm3 (4.5-10.0)
[2020-05-16] MEDS: METOPROLOL TARTRATE 25 MG TABLET PO ×3 (05:44→21:21)
[2020-05-16] MEDS: dilTIAZem HCL 60 MG TABLET PO ×4 (05:44→23:52)
[2020-05-16 05:58] LABS: Iron 30 ug/dL (49-181)
[2020-05-16 06:00] LABS: Anion Gap 6 mmol/L (8-16); Blood Urea Nitrogen 41 mg/dL (9-20); Calcium 8.6 mg/dL (8.4-10.2); Carbon Dioxide 31 mmol/L (22-30); Chloride 111 mmol/L (98-107); Estimated CRCL calculation 49 ml/min; Estimated Glomerular Filt Rate > 60; Glucose 121 mg/dL (75-110); Potassium 2.9 mmol/L (3.4-5.0); Sodium 148 mmol/L (137-145)
[2020-05-16 06:08] LABS: Percent Iron Saturation 15 % (20-50)
[2020-05-16 06:28] LABS: Thyroid Stimulating Hormone Reflex 0.469 uIU/mL (0.465-4.68)
[2020-05-16 07:03] LABS: Folic Acid 12.3 ng/mL (2.76->20)
[2020-05-16 07:55] LABS: Glucose Point of Care 110 (65-105)
[2020-05-16] MEDS: ASPIRIN 81 MG CHEWABLE TABLET PO (08:33)
[2020-05-16] MEDS: ENOXAPARIN 30 MG/0.3 ML SYRINGE SUB-Q (08:34)
[2020-05-16 09:02] LABS: CRP 29.7 mg/dL (<1.0)
[2020-05-16 11:44] LABS: Glucose Point of Care 169 (65-105)
--- NOTE | 2020-05-16 11:49 | PM.IMPN ---
Progress Note: A&P Assessment and Plan (1) Acute CVA (cerebrovascular accident): Code(s): I63.9 - Cerebral infarction, unspecified Status: Acute Assessment and Plan: MRI showing punctate acute cortical infarction in the left occipital lobe and another in the right-sided parietal lobe. EKG repeated and AFib now. Carotid US <50% bilateral carotid stenosis. Echo showing EF 70%. Continue ASA. Not able to go to [facility]. Plan for SNF. Suspect etiology of the CVAs are from his AFib. Continue therapy. Awaiting placement Home meds were brought in but most medication bottles are old and probably he is not taking regularly. (2) Altered mental status: Qualifiers: Altered mental status type: unspecified Qualified Code(s): R41.82 - Altered mental status, unspecified Code(s): R41.82 - Altered mental status, unspecified Status: Acute Assessment and Plan: Patient brought to ER via EMS from home after he had been lying prone in bed for 3 days without oral intake. CT brain 05/05/20 showing no acute findings. Cervical spine CT showing severe cervical spondylosis. Elevated WBC without clear source but now normal. He did have low grade fever on 05/07 without clear etiology. DANISH developed as mentioned below. Brain MRI showing punctate acute cortical infarction in the left occipital lobe and another in the right-sided parietal lobe. Mental status waxes and wanes. Continue PT and OT. (3) Atrial fibrillation with rapid ventricular response: Code(s): I48.91 - Unspecified atrial fibrillation Status: Acute Assessment and Plan: HR as high as 140's. EKG reviewed and P waves not as readily seen as prior EKG to suggest AFib. Lopressor IV added with improved rate control. Lovenox for DVT prophylaxis but holding on full anticoagulation given recent CVAs. Changed to oral metoprolol but had to be moved to IMU and started on Dilt drip. Changed to oral Diltiazem and have continued the Metoprolol. HR better controlled. Start Eliquis tomorrow. (4) DANISH (acute kidney injury): Code(s): N17.9 - Acute kidney failure, unspecified Status: Acute Assessment and Plan: Cr stable at 1.2. Cr normal on admission. Repeat TCK normal. Renal US showing right hydronephrosis. Has Ruiz in place. DANISH probably related to the acyclovir which was stopped. May be getting dehydrated. Continue to monitor. (5) Dysphagia: Code(s): R13.10 - Dysphagia, unspecified Status: Acute Assessment and Plan: Patient failed MBS on 05/07/20. Repeat swallow evaluation done 05/10/20 showing patient can tolerate some oral intake. His swallowing is very slow but may improve. RN states patient coughing when swallowing as well. Aspiration precautions in place. (6) Metabolic encephalopathy: Code(s): G93.41 - Metabolic encephalopathy Status: Acute Assessment and Plan: As above. Related to the acute CVA. Symptoms appear to wax and wane. Continue to follow. (7) Dehydration: Code(s): E86.0 - Dehydration Status: Acute Assessment and Plan: Able to start oral intake but not eating much. Family has refused to feeding tube. IV fluids stared. Na elevated probably related to the dehydration and poor oral intake. Potassium 2.9 and this was replaced. BUn elevated as well again related to his poor oral intake. Spoke with about hospice. (8) Shingles: Code(s): B02.9 - Zoster without complications Status: Acute Assessment and Plan: Clinically unlikely to be shingles. Acyclovir stopped (9) Neck pain: Code(s): M54.2 - Cervicalgia Status: Acute Assessment and Plan: CT C-spine showing severe cervical spondylosis. He has torticollis. Neck soft tissue CT showing leftward torticollis of unclear etiology. stable. Continue therapy to improve ROM. . (10) Prostate cancer: Code(s): C61
[2020-05-16] MEDS: DEXTROSE 5%/0.45% SOD CHL 1,000 ML 100 ML IV CONT (13:06)
[2020-05-16 16:48] LABS: Glucose Point of Care 163 (65-105)
[2020-05-16] MEDS: APIXABAN 5 MG TABLET PO (21:42)
[2020-05-16 22:36] LABS: Glucose Point of Care 140 (65-105)
[2020-05-17] VITALS (11 sets, daily range): BP systolic 109–131; BP diastolic 42–98; PULSE 68–108; RESP 12–16; TEMP 36.3–36.8; O2SAT 96–99
[2020-05-17] MEDS: DEXTROSE 5%/0.45% SOD CHL 1,000 ML 100 ML IV CONT ×3 (01:11→20:35)
[2020-05-17] MEDS: METOPROLOL TARTRATE 25 MG TABLET PO ×3 (05:27→20:38)
[2020-05-17] MEDS: dilTIAZem HCL 60 MG TABLET PO ×4 (05:27→23:16)
[2020-05-17 08:08] LABS: Glucose Point of Care 136 (65-105)
[2020-05-17] MEDS: ASPIRIN 81 MG CHEWABLE TABLET PO (09:30)
[2020-05-17] MEDS: APIXABAN 5 MG TABLET PO ×2 (09:30→20:35)
--- NOTE | 2020-05-17 11:32 | PM.IMPN ---
Progress Note: A&P Assessment and Plan (1) Acute CVA (cerebrovascular accident): Code(s): I63.9 - Cerebral infarction, unspecified Status: Acute Assessment and Plan: MRI showing punctate acute cortical infarction in the left occipital lobe and another in the right-sided parietal lobe. EKG repeated and AFib now. Carotid US <50% bilateral carotid stenosis. Echo showing EF 70%. Continue ASA. Not able to go to [facility]. Plan for SNF. Suspect etiology of the CVAs are from his AFib. Continue therapy. Awaiting placement Home meds were brought in but most medication bottles are old and probably he is not taking regularly. Spoke with son by phone and he is interested in rehab for now. (2) Altered mental status: Qualifiers: Altered mental status type: unspecified Qualified Code(s): R41.82 - Altered mental status, unspecified Code(s): R41.82 - Altered mental status, unspecified Status: Acute Assessment and Plan: Patient brought to ER via EMS from home after he had been lying prone in bed for 3 days without oral intake. CT brain 05/05/20 showing no acute findings. Cervical spine CT showing severe cervical spondylosis. Elevated WBC without clear source but now normal. He did have low grade fever on 05/07 without clear etiology. DANISH developed as mentioned below. Brain MRI showing punctate acute cortical infarction in the left occipital lobe and another in the right-sided parietal lobe. Mental status waxes and wanes. Continue PT and OT. (3) Atrial fibrillation with rapid ventricular response: Code(s): I48.91 - Unspecified atrial fibrillation Status: Acute Assessment and Plan: HR as high as 140's. EKG reviewed and P waves not as readily seen as prior EKG to suggest AFib. Lopressor IV added with improved rate control. Lovenox for DVT prophylaxis but holding on full anticoagulation given recent CVAs. Changed to oral metoprolol but had to be moved to IMU and started on Dilt drip. Changed to oral Diltiazem and have continued the Metoprolol. HR better controlled. Eliquis started. (4) DANISH (acute kidney injury): Code(s): N17.9 - Acute kidney failure, unspecified Status: Acute Assessment and Plan: Cr stable at 1.2. Cr normal on admission. Repeat TCK normal. Renal US showing right hydronephrosis. Has Ruiz in place. DANISH probably related to the acyclovir which was stopped. May be getting dehydrated. Continue to monitor. Okay to remove Ruiz (5) Dysphagia: Code(s): R13.10 - Dysphagia, unspecified Status: Acute Assessment and Plan: Patient failed MBS on 05/07/20. Repeat swallow evaluation done 05/10/20 showing patient can tolerate some oral intake. His swallowing is very slow but may improve. RN states patient coughing when swallowing as well. Aspiration precautions in place. (6) Metabolic encephalopathy: Code(s): G93.41 - Metabolic encephalopathy Status: Acute Assessment and Plan: As above. Related to the acute CVA. Symptoms appear to wax and wane. Continue to follow. (7) Dehydration: Code(s): E86.0 - Dehydration Status: Acute Assessment and Plan: Able to start oral intake but not eating much. Family has refused to feeding tube. Currently on IV fluids. Na elevated yesterday. Repeat ordered. Potassium also was low and was replaced yesterday. Follow up on repeat labs. (8) Shingles: Code(s): B02.9 - Zoster without complications Status: Acute Assessment and Plan: Clinically unlikely to be shingles. Acyclovir stopped. Rash has resolved. (9) Neck pain: Code(s): M54.2 - Cervicalgia Status: Acute Assessment and Plan: CT C-spine showing severe cervical spondylosis. He has torticollis. Neck soft tissue CT showing leftward torticollis of unclear etiology. stable. Continue therapy to try to improve neck ROM. (10) P
--- NOTE | 2020-05-17 11:39 | PCNFU ---
Nutrition Follow-Up Complete: Inadequate Oral Intake as related to change of mental status as evidenced by NPO Goal: Meet estimated nutritional needs. Limited progress towards goal. We will continue current goal. Pt current nutrition is Pureed, Level 4. Nutrition recommendation: Pureed, Level 4 Last recorded weight is 78.6 kg. Bowel Motility: Labs Reviewed: +BM reported 05/16 Meds Noted:[employer], [place] Additional Notes: Patient seen today for nutrition followup. PO intake remains poor, 0-25% of meals. Patient did consume Ensure Enlive x 3 yesterday providing an additional 1050 kcals and 60 gms protein. PO intake continues to be encouraged. plans for SNF soon. Monitoring: Will monitor every 3 days.
[2020-05-17 11:41] LABS: Glucose Point of Care 132 (65-105)
[2020-05-17 12:13] LABS: Anion Gap 3 mmol/L (8-16); Blood Urea Nitrogen 40 mg/dL (9-20); Calcium 8.1 mg/dL (8.4-10.2); Carbon Dioxide 31 mmol/L (22-30); Chloride 107 mmol/L (98-107); Estimated CRCL calculation 54 ml/min; Estimated Glomerular Filt Rate > 60; Glucose 119 mg/dL (75-110); Magnesium 1.8 mg/dL (1.6-2.3); Sodium 141 mmol/L (137-145)
[2020-05-17 12:13] LABS: SARS-CoV-2 RNA PCR Negative
[2020-05-17] MEDS: POTASSIUM CHLORIDE 20 MEQ TABLET 40 MEQ PO (14:44)
[2020-05-17 17:05] LABS: Glucose Point of Care 166 (65-105)
--- NOTE | 2020-05-17 18:30 | PC.NURSE ---
Patient had Ruiz catheter removed at 12:30. The patient had not urinated by 1830 so I bladder scanned the patient and got 302. I called Dr. Yang to notify him of these results. He did not answer so I left a message and passed this on to the lieutenant shift supervisor nurse.
[2020-05-17 20:52] LABS: Glucose Point of Care 122 (65-105)
[2020-05-18] VITALS (7 sets, daily range): BP systolic 124–149; BP diastolic 45–73; PULSE 66–108; RESP 12–16; TEMP 36.4–37.2; O2SAT 98–100
[2020-05-18] MEDS: METOPROLOL TARTRATE 25 MG TABLET PO ×2 (06:09→14:26)
[2020-05-18] MEDS: dilTIAZem HCL 60 MG TABLET PO ×3 (06:09→18:12)
[2020-05-18] MEDS: DEXTROSE 5%/0.45% SOD CHL 1,000 ML 100 ML IV CONT (06:13)
[2020-05-18] MEDS: APIXABAN 5 MG TABLET PO (08:11)
[2020-05-18] MEDS: ASPIRIN 81 MG CHEWABLE TABLET PO (08:11)
[2020-05-18 08:40] LABS: Glucose Point of Care 95 (65-105)
[2020-05-18 10:53] LABS: Anion Gap 3 mmol/L (8-16); Blood Urea Nitrogen 33 mg/dL (9-20); Calcium 7.6 mg/dL (8.4-10.2); Carbon Dioxide 29 mmol/L (22-30); Chloride 107 mmol/L (98-107); Estimated CRCL calculation 61 ml/min; Estimated Glomerular Filt Rate > 60; Glucose 133 mg/dL (75-110); Potassium 3.4 mmol/L (3.4-5.0); Sodium 139 mmol/L (137-145)
[2020-05-18 12:26] LABS: Glucose Point of Care 132 (65-105)
--- NOTE | 2020-05-18 13:11 | WPDNEUROPN ---
Progress Note: A&P Assessment and Plan (1) Anemia: Code(s): D64.9 - Anemia, unspecified Status: Acute (2) Stroke: Code(s): I63.9 - Cerebral infarction, unspecified Status: Acute (3) Dementia: Code(s): F03.90 - Unspecified dementia without behavioral disturbance Status: Acute (4) Gait disorder: Code(s): R26.9 - Unspecified abnormalities of gait and mobility Status: Acute (5) Prostate cancer: Code(s): C61 - Malignant neoplasm of prostate Status: Acute (6) DANISH (acute kidney injury): Code(s): N17.9 - Acute kidney failure, unspecified Status: Acute (7) Acute CVA (cerebrovascular accident): Code(s): I63.9 - Cerebral infarction, unspecified Status: Acute (8) Atrial fibrillation with rapid ventricular response: Code(s): I48.91 - Unspecified atrial fibrillation Status: Acute (9) Dysphagia: Code(s): R13.10 - Dysphagia, unspecified Status: Acute (10) Safety impairment: Status: Acute Additional Plan seems like the patient is going to be going to an extended care facility the option remains clear whether the put him on anticoagulation however if he starts walking and falls down again that is a much higher risk involved however if he remains bedridden and to prevent any future stroke consideration for the Eliquis can be given Review of Systems Review of Systems: All systems reviewed & are unremarkable except as noted in HPI and below Exam Const: General: comfortable and no acute distress HENMT: General nose exam: Normal nares present Mouth: Yes moist mucous membranes Eyes: General: appearance normal, both eyes and all related structures Neck: Neck: supple and no JVD Resp: Effort & Inspection: normal respiratory effort Auscultation: clear to auscultation bilaterally Cardio: Rate: regular rate Rhythm: regular rhythm GI: Auscultation: normal bowel sounds Neuro: Other: patient is awake alert when he does talk he talks either in Danish or Lithuanian or Macedonian but 2 or 3 sentences together but is much better than the last time examine him still does not have any focal lateralizing deficit but is generally weak in both upper and lower extremities able to eat and swallow without choking Extrem: General: normal to inspection Psych: Other: cognitive deficit along with aphasia which is definitely better Objective Data Vital Signs Vital Signs: Vital Signs - 24 hr 05/17/20 14:00 05/17/20 14:45 05/17/20 18:00 Temperature 36.8 C 36.8 C Pulse Rate 103 H 104 H 70 Respiratory Rate 16 16 Blood Pressure 119/64 120/51 L Pulse Oximetry 99 98 05/17/20 20:38 05/17/20 20:40 05/18/20 00:00 Temperature 36.6 C 37.1 C Pulse Rate 68 68 69 Respiratory Rate 12 12 Blood Pressure 129/61 149/59 H Pulse Oximetry 99 99 05/18/20 04:00 05/18/20 06:09 05/18/20 10:00 Temperature 37.2 C 36.4 C Pulse Rate 75 66 82 Respiratory Rate 12 14 Blood Pressure 144/73 H 129/51 L Pulse Oximetry 100 98 Intake/Output Intake/Output: Intake & Output 05/15/20 05/16/20 05/17/20 05/18/20 23:59 23:59 23:59 23:59 Intake Total 100 2160 3590 1050 Output Total 800 425 850 Balance -700 1735 2740 1050 Meds/Results Medications: Active Medications Generic Name Dose Route Start Last Admin Trade Name Freq PRN Reason Stop Dose Admin Acetaminophen 650 mg 05/18/20 12:52 Tylenol Tablet PO Q6H PRN Mild Pain (1-3) or Fever Apixaban 5 mg 05/16/20 21:00 05/18/20 08:11 Eliquis PO 5 mg Q12HR SAILAJA Administration Aspirin 81 mg 05/12/20 08:00 05/18/20 08:11 Aspirin Chewable PO 81 mg DAILY@0800 [facility] Administration Diltiazem HCl 60 mg 05/13/20 18:00 05/18/20 12:29 Cardizem Tab PO 60 mg Q6HR SAILAJA Administration Dextrose 1,000 mls @ 50 mls/hr 05/09/20 08:45 Dextrose 10% IV CONT .Q20H PRN if PN is interrupted Dextrose/Sodium Chloride 1,000 mls @ 100 mls/
--- NOTE | 2020-05-18 15:11 | PM.IMPN ---
Progress Note: A&P Assessment and Plan (1) Acute CVA (cerebrovascular accident): Code(s): I63.9 - Cerebral infarction, unspecified Status: Acute Assessment and Plan: MRI showing punctate acute cortical infarction in the left occipital lobe and another in the right-sided parietal lobe. EKG repeated and AFib now. Carotid US <50% bilateral carotid stenosis. Echo showing EF 70%. Continue ASA. Not able to go to [facility]. Plan for SNF. Suspect etiology of the CVAs are from his AFib. Continue therapy. Awaiting placement Home meds were brought in but most medication bottles are old and probably he is not taking regularly. (2) Altered mental status: Qualifiers: Altered mental status type: unspecified Qualified Code(s): R41.82 - Altered mental status, unspecified Code(s): R41.82 - Altered mental status, unspecified Status: Acute Assessment and Plan: Patient brought to ER via EMS from home after he had been lying prone in bed for 3 days without oral intake. CT brain 05/05/20 showing no acute findings. Cervical spine CT showing severe cervical spondylosis. Elevated WBC without clear source but now normal. He did have low grade fever on 05/07 without clear etiology. DANISH developed as mentioned below. Brain MRI showing punctate acute cortical infarction in the left occipital lobe and another in the right-sided parietal lobe. Mental status waxes and wanes. Continue PT and OT. (3) Atrial fibrillation with rapid ventricular response: Code(s): I48.91 - Unspecified atrial fibrillation Status: Acute Assessment and Plan: HR as high as 140's. EKG reviewed and P waves not as readily seen as prior EKG to suggest AFib. Lopressor IV added with improved rate control. Lovenox for DVT prophylaxis but initially held on full anticoagulation given recent CVAs. Changed to oral metoprolol with oral Diltiazem and have continued the Metoprolol. HR better controlled. Started Eliquis 05/16. (4) DANISH (acute kidney injury): Code(s): N17.9 - Acute kidney failure, unspecified Status: Acute Assessment and Plan: Cr normal on admission. Repeat TCK normal. Renal US showing right hydronephrosis. Has Ruiz in place. DANISH probably related to the acyclovir which was stopped. May be getting dehydrated. creatinine 0.8 today and bun 33.Continue to monitor. (5) Dysphagia: Code(s): R13.10 - Dysphagia, unspecified Status: Acute Assessment and Plan: Patient failed MBS on 05/07/20. Repeat swallow evaluation done 05/10/20 showing patient can tolerate some oral intake. His swallowing is very slow but may improve. RN states patient coughing when swallowing as well. Aspiration precautions in place. (6) Metabolic encephalopathy: Code(s): G93.41 - Metabolic encephalopathy Status: Acute Assessment and Plan: As above. Related to the acute CVA. Symptoms appear to wax and wane. Continue to follow. (7) Dehydration: Code(s): E86.0 - Dehydration Status: Acute Assessment and Plan: Able to start oral intake but not eating much. Family has refused to feeding tube. IV fluids stared. Na elevated probably related to the dehydration and poor oral intake. Potassium 2.9 and this was replaced 3.4 today. BUn elevated as well again related to his poor oral intake. DR Mccord spoke with about hospice. (8) Shingles: Code(s): B02.9 - Zoster without complications Status: Acute Assessment and Plan: Clinically unlikely to be shingles. Acyclovir stopped (9) Neck pain: Code(s): M54.2 - Cervicalgia Status: Acute Assessment and Plan: CT C-spine showing severe cervical spondylosis. He has torticollis. Neck soft tissue CT showing leftward torticollis of unclear etiology. stable. Continue therapy to improve ROM. . (10) Prostate cancer: Code(s): C61 - Malignant neoplasm
[2020-05-18] MEDS: POTASSIUM CHLORIDE 20 MEQ TABLET 40 MEQ PO (16:33)
[2020-05-18 18:22] LABS: Glucose Point of Care 119 (65-105)
--- NOTE | 2020-05-18 18:32 | PM.DS ---
DS: Admitting Diagnosis Admitting Diagnosis Admitting Diagnosis: Metabolic encephalopathy DS: Discharge Diagnosis Discharge Diagnosis (1) Acute CVA (cerebrovascular accident): Code(s): I63.9 - Cerebral infarction, unspecified Status: Acute Assessment and Plan: MRI showing punctate acute cortical infarction in the left occipital lobe and another in the right-sided parietal lobe. EKG repeated and AFib now. Carotid US <50% bilateral carotid stenosis. Echo showing EF 70%. Continue ASA. Not able to go to [facility]. Plan for SNF. Suspect etiology of the CVAs are from his AFib. Continue therapy. Home meds were brought in but most medication bottles are old and probably he is not taking regularly. placement arranged today (2) Altered mental status: Qualifiers: Altered mental status type: unspecified Qualified Code(s): R41.82 - Altered mental status, unspecified Code(s): R41.82 - Altered mental status, unspecified Status: Acute Assessment and Plan: Patient brought to ER via EMS from home after he had been lying prone in bed for 3 days without oral intake. CT brain 05/05/20 showing no acute findings. Cervical spine CT showing severe cervical spondylosis. Elevated WBC without clear source but now normal. He did have low grade fever on 05/07 without clear etiology. DANISH developed as mentioned below. Brain MRI showing punctate acute cortical infarction in the left occipital lobe and another in the right-sided parietal lobe. Mental status waxes and wanes. Continue PT and OT. (3) Atrial fibrillation with rapid ventricular response: Code(s): I48.91 - Unspecified atrial fibrillation Status: Acute Assessment and Plan: HR as high as 140's. EKG reviewed and P waves not as readily seen as prior EKG to suggest AFib. Lopressor IV added with improved rate control. Lovenox for DVT prophylaxis but initially held on full anticoagulation given recent CVAs. Changed to oral metoprolol with oral Diltiazem and have continued the Metoprolol. HR better controlled. Started Eliquis 05/16. and continue on discharge (4) DANISH (acute kidney injury): Code(s): N17.9 - Acute kidney failure, unspecified Status: Acute Assessment and Plan: Cr normal on admission. Repeat TCK normal. Renal US showing right hydronephrosis. Has Ruiz in place. DANISH probably related to the acyclovir which was stopped. May be getting dehydrated. creatinine 0.8 today and bun 33.Continue to monitor. with BMP in 1 week (5) Dysphagia: Code(s): R13.10 - Dysphagia, unspecified Status: Acute Assessment and Plan: Patient failed MBS on 05/07/20. Repeat swallow evaluation done 05/10/20 showing patient can tolerate some oral intake. His swallowing is very slow but may improve. RN states patient coughing when swallowing as well. Aspiration precautions in place. (6) Metabolic encephalopathy: Code(s): G93.41 - Metabolic encephalopathy Status: Acute Assessment and Plan: As above. Related to the acute CVA. Symptoms appear to wax and wane. Continue to follow. (7) Dehydration: Code(s): E86.0 - Dehydration Status: Acute Assessment and Plan: Able to start oral intake but not eating much. Family has refused to feeding tube. IV fluids stared. Na elevated probably related to the dehydration and poor oral intake. Potassium 2.9 and this was replaced 3.4 today and further supplemented. BUn elevated as well again related to his poor oral intake. DR Yang spoke with about hospice. again BMP 1 week (8) Shingles: Code(s): B02.9 - Zoster without complications Status: Acute Assessment and Plan: Clinically unlikely to be shingles. Acyclovir stopped (9) Neck pain: Code(s): M54.2 - Cervicalgia Status: Acute Assessment and Plan: CT C-spine showing severe cervical spondylosis. He
== END 2020-05-18 20:15 | DRG 65 ==
LOC: ANHED 14:18 → ANH3MED 15:39 → ANH2MED 05-17 02:58 → ANH3MED 05-21 13:52 → ANHIMU 05-21 13:52
PROVIDERS: Internal Medicine; Admitting Provider Family Medicine; Emergency Provider Emergency Medicine; PCP Internal Medicine; Visit Provider Internal Medicine
DX: I63.9 Cerebral infarction, unspecified (principal); C79.51 Secondary malignant neoplasm of bone; G93.49 Other encephalopathy; N17.9 Acute kidney failure, unspecified; E87.2 Acidosis; R47.01 Aphasia; E86.0 Dehydration; C61 Malignant neoplasm of prostate; D63.0 Anemia in neoplastic disease; N14.1 Nephropathy induced by other drugs, medicaments and biological substances; T37.5X5A Adverse effect of antiviral drugs, initial encounter; Z11.59 Encounter for screening for other viral diseases; R97.20 Elevated prostate specific antigen [PSA]; F03.90 Unspecified dementia, unspecified severity, without behavioral disturbance, psychotic disturbance, mood disturbance, and anxiety; Z66 Do not resuscitate; I48.91 Unspecified atrial fibrillation; R00.0 Tachycardia, unspecified; M47.812 Spondylosis without myelopathy or radiculopathy, cervical region; M43.6 Torticollis; M54.2 Cervicalgia; R26.9 Unspecified abnormalities of gait and mobility; I10 Essential (primary) hypertension; K58.9 Irritable bowel syndrome, unspecified; B02.9 Zoster without complications; Z90.79 Acquired absence of other genital organ(s); Z91.81 History of falling
CPT/HCPCS: 36415; 70450; 70490; 70551; 71046; 72125; 76775; 80048; 80053; 80061; 80069; 81001; 82550; 82607; 82728; 82746; 83540; 83550; 83605; 83735; 84100; 84153; 84443; 84466; 84478; 85025; 85027; 85055; 85610; 85730; 86140; 87040; 87086; 87635; 92610; 92611; 93005; 93306; 93880; 96360; 96361; 97110; 97162; 97165; 97167; 97530; 97535; 99285; A9270; C9803; G0378; J0131; J0133; J0360; J1170; J1650; J3475; J3480; J7120; U0003